=== PATIENT | male | born 1950 | race Caucasian/White ===

== ENCOUNTER → 2020-07-12 | Outpatient (CLI) | payer MEDICARE ==
--- NOTE | 2020-07-12 15:01 | US ---
EXAMINATION TYPE: US carotid duplex BILAT DATE OF EXAM: 07/12/2020 COMPARISON: NONE CLINICAL HISTORY: G45.3 AMAUNSIS FUGA. Pt states transient loss of vision with left eye EXAM MEASUREMENTS: RIGHT: Peak Systolic Velocity (PSV) cm/sec ----- Right CCA: 98.5 ----- Right ICA: 87.7 ----- Right ECA: 106 ICA/CCA ratio: 0.9 RIGHT: End Diastole cm/sec ----- Right CCA: 16.3 ----- Right ICA: 24.5 ----- Right ECA: 11.6 LEFT: Peak Systolic Velocity (PSV) cm/sec ----- Left CCA: 85.8 ----- Left ICA: 98.4 ----- Left ECA: 109 ICA/CCA ratio: 0.9 LEFT: End Diastole cm/sec ----- Left CCA: 17.4 ----- Left ICA: 24.6 ----- Left ECA: 15.0 VERTEBRALS (direction of flow): Right Vertebral: Antegrade Left Vertebral: Antegrade Rhythm: Normal No significant stenosis seen IMPRESSION: 1. No significant hemodynamic stenosis as visualized. Criteria for Assigning % of Stenosis / Diameter reduction (Estimation based on the indirect measurements of the internal carotid artery velocities (ICA PSV). 1. Normal (no stenosis)=ICA PSV < 125 cm/s: ratio < 2.0: ICA EDV<40 cm/s. 2. Less than 50% stenosis=ICA PSV < 125 cm/s: ratio < 2.0: ICA EDV<40 cm/s. 3. 50 to 69% stenosis=ICA PSV of 125 to 230 cm/s: ration 2.0 ? 4.0: ICA EDV 40-100 cm/s. 4. Greater than 70% stenosis to near occlusion= ICA PSV > 230 cm/s: ratio > 4.0: ICA EDV > 100 cm/s. 5. Near occlusion= ICA PSV velocities may be low or undetectable: variable ratio and ICA EDV. 6. Total occlusion=unable to detect flow.
== END | disposition home or self-care (01) ==
LOC: RADUSWWP 14:26
PROVIDERS: ATTEND Ophthalmology
DX: G45.3 Amaurosis fugax (principal)
CPT/HCPCS: 93880

== ENCOUNTER → 2020-08-06 | Outpatient (CLI) | payer MEDICARE ==
[2020-08-06 15:23] LABS: African American GFR (CKD) >90 (>60 ml/min/1.73 sqM); Blood Urea Nitrogen 25 mg/dL (9-20); Non-African American GFR(CKD) 87 (>60 ml/min/1.73 sqM)
--- NOTE | 2020-08-06 15:53 | CT ---
EXAMINATION TYPE: CT brain wo/w con DATE OF EXAM: 08/06/2020 COMPARISON: None HISTORY: Syncope. CT DLP: 2122.[address] of the brain was performed. The ventricles, basal cisterns and sulci overlying the cerebral convexities demonstrate mild enlargem ent. There is no evidence for intracranial hemorrhage or sulcal effacement. There is decreased attenuation about the periventricular white matter and deep white matter of both c erebral hemispheres, compatible with chronic small vessel ischemia. Differential diagnosis does inclu de demyelination. No mass effects are seen.No midline shift. Osseous calvarium is intact. If symptoms persist consider MRI. IMPRESSION: 1. Age related atrophic and chronic small vessel ischemic change without acute intracranial process s een at this time.
== END | disposition home or self-care (01) ==
LOC: RADCTMAIN 14:49
PROVIDERS: ATTEND Family Medicine
DX: I67.82 Cerebral ischemia (principal)
CPT/HCPCS: 82565; 84520; 70470; 36415; Q9967

== ENCOUNTER → 2022-03-07 | Outpatient (CLI) | payer MEDICARE ==
--- NOTE | 2022-03-07 12:04 | XR ---
EXAMINATION TYPE: XR knee complete bilateral DATE OF EXAM: 03/07/2022 11:38 AM INDICATION: Patient age:Male; 71 years old; Reason for study: R KNEE DERANGEMENT L KNEE AO/DJD; COMPARISON: None. TECHNIQUE: The Bilateral knee(s) was examined in 3 projections. Frontal, lateral and oblique. FINDINGS: No evidence of any acute osseous pathology, soft tissue swelling, or joint effusion is no kathryn. Bilateral osteophyte formation and tibial plateau and patella is as well as the condyles. Right fabel la noted. There is atherosclerosis of the arterial vasculature. There is joint space narrowing most p ronounced in the medial joint spaces bilaterally. IMPRESSION: 1. No acute osseous pathology. 2. Moderate tricompartmental osteoarthritic changes.
== END | disposition home or self-care (01) ==
LOC: RADXRMAIN 11:12
PROVIDERS: ATTEND Family Medicine
DX: M17.12 Unilateral primary osteoarthritis, left knee (principal)

== ENCOUNTER → 2023-05-12 | Outpatient (CLI) | payer MEDICARE ==
--- NOTE | 2023-05-12 10:20 | XR ---
EXAMINATION TYPE: XR chest 2V DATE OF EXAM: 05/12/2023 COMPARISON: 03/28/2014 INDICATION: Short of breath TECHNIQUE: Frontal and lateral views of the chest are obtained. FINDINGS: The heart size is normal. The pulmonary vasculature is normal. The lungs are clear. IMPRESSION: 1. No acute pulmonary process.
== END | disposition home or self-care (01) ==
LOC: RADXRMAIN 09:52
PROVIDERS: ATTEND Family Medicine
DX: R06.02 Shortness of breath (principal)
CPT/HCPCS: 71046

== ENCOUNTER 2023-08-27 16:32 | Inpatient (IN) | payer MEDICARE, OTHER ==
--- NOTE | 2023-08-27 17:18 | ED ---
SOB HPI - General Source: patient, RN notes reviewed Mode of arrival: ambulatory Limitations: no limitations <Mamta Reddy - Last Filed: 08/27/23 17:16> - General Source: patient, RN notes reviewed, old records reviewed <Saul Hugo - Last Filed: 08/27/23 20:49> - General Chief Complaint: Shortness of Breath Stated Complaint: KAYDEN/SOB Time Seen by Provider: 08/27/23 16:50 - History of Present Illness Initial Comments: Kat notedesirees is a 73-year-old male presents emergency department chief complaint of dyspnea. Patient is also endorsing symptoms of orthopnea over the past few weeks to month. Patient states that he has been experiencing dyspnea since the fall due to hydrogen sulfide poisoning at a landfill. Patient has history of COPD states he has history of asthma as a child. Denies fevers, history of DVT or PE, lower extremity swelling, and is not on any blood thinners. (Mamta Reddy) Patient is a 73-year-old male who presents emergency department complaining of dyspnea. States for the last 2 weeks he has been having worsening shortness of breath, orthopnea, difficulty sleeping at night. Also endorsing worsening lower extremity edema. No cough. No chest pain. No abdominal pain, nausea, vomi ting. Presents emergency department for further evaluation at this time. Denies any follow-up with cardiology. Has a history of hypertension. Presents for further evaluation at this time. Denies any chest pain. (Saul Hugo) - Related Data Home Medications Medication Instructions Recorded Confirmed Cholecalciferol [Vitamin D3 (25 25 mcg PO DAILY 08/27/23 08/27/23 Mcg = 1000 Iu)] Simvastatin [Zocor] 20 mg PO DAILY 08/27/23 08/27/23 Vit C/E/Zn/Coppr/Lutein/Zeaxan 1 cap PO DAILY 08/27/23 08/27/23 [Preservision Areds 2 Softgel] amLODIPine [Norvasc] 10 mg PO DAILY 08/27/23 08/27/23 lisinopriL [Zestril] 20 mg PO DAILY 08/27/23 08/27/23 Allergies Allergy/AdvReac Type Severity Reaction Status Date / Time No Known Allergies Allergy Verified 08/27/23 19:53 Review of Systems ROS Other: All systems not noted in ROS Statement are negative. <Mamta Reddy - Last Filed: 08/27/23 17:16> ROS Other: All systems not noted in ROS Statement are negative. <Saul Hugo - Last Filed: 08/27/23 20:49> ROS Statement: Those systems with pertinent positive or pertinent negative responses have been documented in the HPI. Review of Systems: CONST: Denies fever EYES: Denies blurry vision ENT: Denies nasal congestion C/V: Denies Chest pain RESP: Endorses shortness of breath GI: Denies abdominal pain : Denies dysuria SKIN: Denies rash. MSK: Denies joint pain. NEURO: Denies headache (Saul Hugo) Past Medical History Past Medical History: Hyperlipidemia, Hypertension History of Any Multi-Drug Resistant Organisms: None Reported Additional Past Surgical History / Comment(s): rt kidney removal Past Psychological History: No Psychological Hx Reported Smoking Status: Never smoker Past Alcohol Use History: Occasional Past Drug Use History: None Reported <Mamta Reddy - Last Filed: 08/27/23 17:16> General Exam Limitations: no limitations <Mamta Reddy - Last Filed: 08/27/23 17:16> <Saul Hugo - Last Filed: 08/27/23 20:49> - General Exam Comments Initial Comments: Visual Physical Exam Vital signs reviewed General: Well-appearing, nontoxic, no acute distress. Head: Normocephalic, atraumatic Eyes: PERRLA, EOMI ENT: Airway patent Chest: Nonlabored breathing Skin: No visual rash, normal skin tone Neuro: Alert and oriented 3 Musculoskeletal: No gross abnormalities (Mamta Reddy) General: Appears in no acute distress. HEAD: Normal with no signs of head trauma. EYES: PERRLA, EOMI, conjunctiva normal, no discharge. ENT: Hearing grossly intact, normal oropharynx. RESPIRATORY: Clear breath sounds bilaterally. No wheezes, rales, or rhonchi. No hypoxia. C/V: Regular rate and rhythm. S1 and S2 auscultated, metrical lower extremity pitting edema, peripheral pulses 2+ and intact throughout ABD: Abd is soft, nontender, nondistended EXT: Normal range of motion, no obvious deformity SKIN: No rashes or lesions observed on exposed skin. NEURO: Alert and oriented x 4. (Saul Hugo) Course Vital Signs 08/27/23 08/27/23 08/27/23 16:42 18:34 19:56 Temperature 97.9 F Pulse Rate 75 87 80 Respiratory 16 18 18 Rate Blood Pressure 179/117 181/120 169/120 O2 Sat by Pulse 99 98 97 Oximetry Medical Decision Making <Mamta Reddy - Last Filed: 08/27/23 17:16> - Lab Data Result diagrams: 08/27/23 18:14 08/27/23 19:20 - EKG Data -: EKG Interpreted by Me <BethelSaul - Last Filed: 08/27/23 20:49> - Medical Decision Making I completed the quick note portion of this chart signed Mamta Reddy PA-C (Mamta Reddy) Was pt. sent in by a medical professional or institution ([facility] Ann, [employer], urgent care, hospital, or [facility]...) When possible be specific @ -No Did you speak to anyone other than the patient for history (EMS, parent, family, police, friend...)? What history was obtained from this source @ -No Did you review nursing and triage notes (agree or disagree)? Why? @ -I reviewed and agree with nursing and triage notes Were old charts reviewed (outside hosp., previous admission, EMS record, old EKG, old radiological studies, urgent care reports/EKG's, [facility] records)? Report findings @ -Old charts reviewed Differential Diagnosis (chest pain, altered mental status, abdominal pain women, abdominal pain men, vaginal bleeding, weakness, fever, dyspnea, syncope, headache, dizziness, GI bleed, back pain, seizure, CVA, palpatations, mental health, musculoskeletal)? @ -Differential Dyspnea: Coronary syndrome, arrhythmia, tamponade, asthma, COPD, pulmonary embolism, pneumonia, pneumothorax, pulmonary effusion, anaphylaxis, diabetic ketoacidosis, flailed chest, pulmonary contusion, diaphragmatic rupture, anemia, neuromuscular, this is not meant to be an all-inclusive list. EKG interpreted by me (3pts min.). @ -As above X-rays interpreted by me (1pt min.). @ -Chest x-ray shows findings consistent with CHF CT interpreted by me (1pt min.). @ -None done U/S interpreted by me (1pt. min.). @ -None done What testing was considered but not performed or refused? (CT, X-rays, U/S, labs)? Why? @ -None What meds were considered but not given or refused? Why? @ -None Did you discuss the management of the patient with other professionals (professionals i.e. , PA, [employer], lab, RT, psych nurse, social service agency director, voice coach, teacher, special assets officer, showcase maker)? Give summary @ -Discussed with admitting provider, PORSHA Lopes of [facility] who accepted the admission. Was smoking cessation discussed for >3mins.? @ -No Was critical care preformed (if so, how long)? @ -Yes, 35 minutes Were there social determinants of health that impacted care today? How? (Homelessness, low income, unemployed, alcoholism, drug addiction, transporta tion, low edu. Level, literacy, decrease access to med. care, senior care, rehab)? @ -No Was there de-escalation of care discussed even if they declined (Discuss DNR or withdrawal of care, Hospice)? DNR status @ -No What co-morbidities impacted this encounter? (DM, HTN, Smoking, COPD, CAD, Cancer, CVA, ARF, Chemo, Hep., AIDS, mental health diagnosis, sleep apnea, morbid obesity)? @ -Hypertension Was patient admitted / discharged? Hospital course, mention meds given and route, prescriptions, significant lab abnormalities, going to OR and other pertinent info. @ -Based on the patient's presentation and physical exam, presents with dyspnea. Suspect CHF exacerbation for the patient. Patient originally worked up as a quick note. We will obtain cardiopulmonary workup. Patient in agreement this plan. Vital signs currently within acceptable limits. EKG shows no signs of acute ischemia. Laboratory studies remarkable for elevated troponin of 0.823 as well as elevated BNP of 13,000. Chest x-ray does show findings consistent with CHF. I updated the patient. He is chest pain-free. We discussed his workup. Patient be started on a heparin drip for NSTEMI as well as IV Lasix for CHF. Patient was in agreement this plan. Echo ordered. Cardiology consulted. I spoke with the admitting team, PORSHA Lopes of [facility] who accepted the admission. Undiagnosed new problem with uncertain prognosis? @ -No Drug Therapy requiring intensive monitoring for toxicity (Heparin, Nitro, Insulin, Cardizem)? @ -Heparin Were any procedures done? @ -No Diagnosis/symptom? @ -NSTEMI, CHF Acute, or Chronic, or Acute on Chronic? @ -Acute Uncomplicated (without systemic symptoms) or Complicated (systemic symptoms)? @ -Complicated Side effects of treatment? @ -No Exacerbation, Progression, or Severe Exacerbation? @ -No Poses a threat to life or bodily function? How? (Chest pain, USA, MD, pneumonia, PE, COPD, DKA, ARF, appy, cholecystitis, CVA, Diverticulitis, Homicidal, Suicidal, threat to staff... and all critical care pts) @ -Yes (Saul Hugo) - Lab Data Lab Results 08/27/23 08/27/23 08/27/23 Range/Units 18:14 18:57 19:20 WBC 7.9 (3.8-10.6) k/uL RBC 5.50 (4.30-5.90) m/uL Hgb 16.5 (13.0-17.5) gm/dL Hct 51.9 (39.0-53.0) % MCV 94.4 (80.0-100.0) fL MCH 30.0 (25.0-35.0) pg MCHC 31.8 (31.0-37.0) g/dL RDW 13.1 (11.5-15.5) % Plt Count 178 (150-450) k/uL MPV 8.0 Neutrophils % 67 % Lymphocytes % 21 % Monocytes % 6 % Eosinophils % 4 % Basophils % 1 % Neutrophils # 5.3 (1.3-7.7) k/uL Lymphocytes # 1.7 (1.0-4.8) k/uL Monocytes # 0.5 (0-1.0) k/uL Eosinophils # 0.3 (0-0.7) k/uL Basophils # 0.1 (0-0.2) k/uL Sodium 138 (137-145) mmol/L Potassium 4.6 (3.5-5.1) mmol/L Chloride 108 H (98-107) mmol/L Carbon Dioxide 22 (22-30) mmol/L Anion Gap 8 mmol/L BUN 20 (9-20) mg/dL Creatinine 1.12 (0.66-1.25) mg/dL Est GFR (CKD-EPI)AfAm 76 (>60 ml/min/1.73 sqM) Est GFR (CKD-EPI)NonAf 66 (>60 ml/min/1.73 sqM) Glucose 93 (74-99) mg/dL Calcium 10.0 (8.4-10.2) mg/dL Magnesium 2.2 (1.6-2.3) mg/dL Total Bilirubin 2.0 H (0.2-1.3) mg/dL AST 38 (17-59) U/L ALT 38 (4-49) U/L Alkaline Phosphatase 62 (38-126) U/L Troponin I (0.000-0.034) ng/mL NT-Pro-B Natriuret Pep 83656 pg/mL Total Protein 6.8 (6.3-8.2) g/dL Albumin 4.2 (3.5-5.0) g/dL Influenza Type A (PCR) Not Detected (Not Detectd) Influenza Type B (PCR) Not Detected (Not Detectd) RSV (PCR) Not Detected (Not Detectd) SARS-CoV-2 (PCR) Not Detected (Not Detectd) 08/27/23 Range/Units 19:20 WBC (3.8-10.6) k/uL RBC (4.30-5.90) m/uL Hgb (13.0-17.5) gm/dL Hct (39.0-53.0) % MCV (80.0-100.0) fL MCH (25.0-35.0) pg MCHC (31.0-37.0) g/dL RDW (11.5-15.5) % Plt Count (150-450) k/uL MPV Neutrophils % % Lymphocytes % % Monocytes % % Eosinophils % % Basophils % % Neutrophils # (1.3-7.7) k/uL Lymphocytes # (1.0-4.8) k/uL Monocytes # (0-1.0) k/uL Eosinophils # (0-0.7) k/uL Basophils # (0-0.2) k/uL Sodium (137-145) mmol/L Potassium (3.5-5.1) mmol/L Chloride (98-107) mmol/L Carbon Dioxide (22-30) mmol/L Anion Gap mmol/L BUN (9-20) mg/dL Creatinine (0.66-1.25) mg/dL Est GFR (CKD-EPI)AfAm (>60 ml/min/1.73 sqM) Est GFR (CKD-EPI)NonAf (>60 ml/min/1.73 sqM) Glucose (74-99) mg/dL Calcium (8.4-10.2) mg/dL Magnesium (1.6-2.3) mg/dL Total Bilirubin (0.2-1.3) mg/dL AST (17-59) U/L ALT (4-49) U/L Alkaline Phosphatase (38-126) U/L Troponin I 0.823 H* (0.000-0.034) ng/mL NT-Pro-B Natriuret Pep pg/mL Total Protein (6.3-8.2) g/dL Albumin (3.5-5.0) g/dL Influenza Type A (PCR) (Not Detectd) Influenza Type B (PCR) (Not Detectd) RSV (PCR) (Not Detectd) SARS-CoV-2 (PCR) (Not Detectd) - EKG Data EKG Comments: 12-lead Electrocardiogram Interpretation Note EKG was reviewed and interpreted by myself. 12-lead ECG performed at 1819 is interpreted by me as revealing normal sinus rhythm at a rate of 86 beats per minute. [place] is normal. CA interval is 147 ms, QRS duration is 88 ms, QTc is 419 ms.. There were no ST or T wave abnormalities to suggest myocardial ischemia or injury. R wave progression across the precordium was satisfactory. By my interpretation this EKG is non-diagnostic for acute ischemia. (Saul Hugo) Critical Care Time Critical Care Time: Yes Total Critical Care Time: 35 <Saul Hugo - Last Filed: 08/27/23 20:49> Disposition <Mamta Reddy - Last Filed: 08/27/23 17:16> Time of Disposition: 20:28 <Saul Hugo - Last Filed: 08/27/23 20:49> Clinical Impression: Congestive heart failure, NSTEMI (non-ST elevated myocardial infarction) Disposition: ADMITTED IP TO THIS HOSP Condition: Serious Referrals: Andrew Wasserman DO [Primary Care Provider] - 1-2 days
--- NOTE | 2023-08-27 17:34 | XR ---
EXAMINATION TYPE: XR chest 2V DATE OF EXAM: 08/27/2023 COMPARISON: 05/12/2023 HISTORY: Shortness of breath TECHNIQUE: Frontal and lateral views of the chest are obtained. FINDINGS: There is moderate cardiomegaly and small bilateral pleural effusions. The pulmonary vasculature is no t congested. There is no interstitial or airspace opacities suggest pulmonary edema. There are multiple healed left rib fractures otherwise the osseous structures are intact IMPRESSION: Moderate cardiomegaly with small bilateral pleural effusions suggesting mild CHF.
[2023-08-27 18:44] LABS: Basophils # (A) 0.1 k/uL (0-0.2); Basophils % (A) 1 %; Eosinophils # (A) 0.3 k/uL (0-0.7); Eosinophils % (A) 4 %; HCT 51.9 % (39.0-53.0); HGB 16.5 gm/dL (13.0-17.5); Lymphocytes # (A) 1.7 k/uL (1.0-4.8); Lymphocytes % (A) 21 %; MCHC 31.8 g/dL (31.0-37.0); MCV 94.4 fL (80.0-100.0); Monocytes # (A) 0.5 k/uL (0-1.0); Monocytes % (A) 6 %; Neutrophils # (A) 5.3 k/uL (1.3-7.7); Neutrophils % (A) 67 %; Platelet Count 178 k/uL (150-450); RDW 13.1 % (11.5-15.5); WBC 7.9 k/uL (3.8-10.6)
[2023-08-27 19:45] LABS: ALT 38 U/L (4-49); AST 38 U/L (17-59); African American GFR (CKD) 76 (>60 ml/min/1.73 sqM); Albumin 4.2 g/dL (3.5-5.0); Alkaline Phosphatase 62 U/L (38-126); Anion Gap 8 mmol/L; Blood Urea Nitrogen 20 mg/dL (9-20); Carbon Dioxide 22 mmol/L (22-30); Chloride 108 mmol/L (98-107); Glucose 93 mg/dL (74-99); Magnesium 2.2 mg/dL (1.6-2.3); Non-African American GFR(CKD) 66 (>60 ml/min/1.73 sqM); Potassium 4.6 mmol/L (3.5-5.1); Sodium 138 mmol/L (137-145); Total Protein 6.8 g/dL (6.3-8.2)
[2023-08-27 19:53] LABS: NT-Pro-B-Type Natriuretic Pept 13400 pg/mL
[2023-08-27] MEDS: ASPIRIN 81 MG PO STA (20:24)
[2023-08-27] MEDS: FUROSEMIDE 10 MG/ML 4 ML VIAL IV STA (20:25)
[2023-08-27] MEDS: HEPARIN SODIUM 1,000 UN/ML (10ML VL) IV ONE (20:28)
[2023-08-27] MEDS: HEPARIN SOD,PORK IN 0.45% NACL 25,000 UNIT in 0.45% NACL 1 250ML.BAG IV SCH (20:30)
[2023-08-27] MEDS ORDERED: ONDANSETRON 4 MG/2 ML VIAL IVP PRN (20:31)
[2023-08-27] MEDS ORDERED: NALOXONE 0.4 MG/ML 1 ML VIAL IV PRN (20:31)
[2023-08-28 04:12] LABS: Basophils # (A) 0.1 k/uL (0-0.2); Basophils % (A) 1 %; Eosinophils # (A) 0.3 k/uL (0-0.7); Eosinophils % (A) 5 %; HCT 47.1 % (39.0-53.0); HGB 15.1 gm/dL (13.0-17.5); Lymphocytes % (A) 28 %; MCH 30.3 pg (25.0-35.0); MCV 94.6 fL (80.0-100.0); Monocytes # (A) 0.6 k/uL (0-1.0); Monocytes % (A) 9 %; Neutrophils # (A) 3.9 k/uL (1.3-7.7); Neutrophils % (A) 56 %; Platelet Count 175 k/uL (150-450); RBC 4.98 m/uL (4.30-5.90); RDW 13.1 % (11.5-15.5)
[2023-08-28 04:24] LABS: ALT 34 U/L (4-49); AST 33 U/L (17-59); African American GFR (CKD) 73 (>60 ml/min/1.73 sqM); Albumin 3.7 g/dL (3.5-5.0); Alkaline Phosphatase 57 U/L (38-126); Anion Gap 5 mmol/L; Blood Urea Nitrogen 23 mg/dL (9-20); Calcium 9.5 mg/dL (8.4-10.2); Carbon Dioxide 26 mmol/L (22-30); Chloride 107 mmol/L (98-107); Glucose 88 mg/dL (74-99); Non-African American GFR(CKD) 63 (>60 ml/min/1.73 sqM); Potassium 3.8 mmol/L (3.5-5.1); Sodium 138 mmol/L (137-145); Total Bilirubin 1.6 mg/dL (0.2-1.3); Total Protein 6.2 g/dL (6.3-8.2)
[2023-08-28 04:25] LABS: Partial Thromboplastin Time 33.9 sec (22.0-30.0); Prothrombin Time 11.2 sec (10.0-12.5)
[2023-08-28] MEDS: HEPARIN SODIUM 1,000 UN/ML (10ML VL) IV PRN (05:00)
[2023-08-28] MEDS ORDERED: ALPRAZolam 0.25 MG TAB PO PRN (09:00)
[2023-08-28] MEDS ORDERED: ALPRAZolam 0.5 MG TAB PO PRN (09:00)
[2023-08-28] MEDS ORDERED: NITROGLYCERIN SL TABS 0.4 MG TAB SUBLINGUAL PRN (09:00)
[2023-08-28] MEDS: lisinopriL 20 MG TAB PO SCH (09:16)
[2023-08-28] MEDS: ATORVASTATIN 10 MG TAB PO SCH (09:16)
[2023-08-28] MEDS: amLODIPine 10 MG TAB PO SCH (09:16)
[2023-08-28] MEDS: FUROSEMIDE 10 MG/ML 4 ML VIAL IV SCH (09:16)
[2023-08-28] MEDS: ASPIRIN 325 MG TAB PO STA (09:16)
[2023-08-28] MEDS: ATORVASTATIN 80 MG TAB PO STA (09:16)
[2023-08-28] MEDS ORDERED: fentaNYL (PF) 50 MCG/ML 2 ML AMP ONE (10:13)
[2023-08-28] MEDS ORDERED: HEPARIN SODIUM 1,000 UN/ML (10ML VL) ONE (10:13)
[2023-08-28] MEDS: SODIUM CHLORIDE 0.9% 1,000 ML IV ONE (10:20)
[2023-08-28] MEDS: fentaNYL (PF) 50 MCG/ML 2 ML AMP IVP ONE (10:53)
[2023-08-28] MEDS: MIDAZOLAM 2 MG/2 ML VIAL IVP ONE (10:53)
[2023-08-28] MEDS: LIDOCAINE 1% INJ 10MG/ML (20 ML MDV) SQ ONE (10:55)
[2023-08-28] MEDS: VERAPAMIL SYRINGE (5 MG/10 ML) INTRAARTER ONE (10:57)
[2023-08-28] MEDS: HEPARIN SODIUM 1,000 UN/ML (10ML VL) IV ONE (11:02)
[2023-08-28] MEDS: IOPAMIDOL-370 100ML BTL INJ ONE (11:13)
[2023-08-28] MEDS ORDERED: RX INFO: IV CONTRAST WAS GIVEN 1 EACH MISC MISCELLANE PRN (11:23)
--- NOTE | 2023-08-28 11:34 | CA ---
Transthoracic Echo Report Name: Paul Villalobos Age: 73 Gender: M : 1950 Exam Date: 08/28/2023 08:47 Exam Location: [place] [facility] Ht (in): 68 Wt (lb): 190 Ordering Physician: Saul Hugo MD Attending/Referring Phys: [employer] Operator Jasmyne Engle RDCS Procedure CPT: Indications: New onset CHF Cardiac Hx: Technical Quality: Poor Contrast 1: Total Dose (mL): Contrast 2: Total Dose (mL): MEASUREMENTS (Male / Female) Normal Values 2D ECHO LV Diastolic Diameter PLAX 6.2 cm 4.2 - 5.9 / 3.9 - 5.3 cm LV Systolic Diameter PLAX 5.4 cm IVS Diastolic Thickness 1.4 cm 0.6 - 1.0 / 0.6 - 0.9 cm LVPW Diastolic Thickness 1.3 cm 0.6 - 1.0 / 0.6 - 0.9 cm LV Relative Wall Thickness 0.4 RV Internal Dim ED PLAX 3.9 cm LA Systolic Diameter LX 4.7 cm 3.0 - 4.0 / 2.7 - 3.8 cm LV Diastolic Volume MOD 4C 154.3 cm??? LV Systolic Volume MOD 4C 105.8 cm??? LV Ejection Fraction MOD 4C 31.4 % LV Cardiac Index MOD 4C 1981.4 cm???/min???m??? LV Diastolic Length 4C 10.4 cm LV Systolic Length 4C 9.7 cm LV Diastolic Volume MOD 2C 138.6 cm??? LV Systolic Volume MOD 2C 108.4 cm??? LV Ejection Fraction MOD 2C 21.8 % LV Cardiac Index MOD 2C 1238.5 cm???/min???m??? LV Diastolic Length 2C 9.2 cm LV Systolic Length 2C 8.4 cm LA Volume 99.6 cm??? 18 - 58 / 22 - 52 cm??? LA Volume Index 48.5 cm???/m??? 16 - 28 cm???/m??? M-MODE Aortic Root Diameter MM 3.8 cm MV E Point Septal Separation 1.7 cm AV Cusp Separation MM 2.2 cm DOPPLER AV Peak Velocity 139.4 cm/s AV Peak Gradient 7.8 mmHg AI Peak Velocity 385.6 cm/s AI Peak Gradient 59.5 mmHg AI Pressure Half Time 1722.8 ms MV Area PHT 5.2 cm??? MR Peak Velocity 528.0 cm/s MR Peak Gradient 111.5 mmHg Mitral E Point Velocity 104.1 cm/s Mitral A Point Velocity 52.4 cm/s Mitral E to A Ratio 2.0 MV Deceleration Time 147.0 ms TR Peak Velocity 397.7 cm/s TR Peak Gradient 63.3 mmHg Right Ventricular Systolic Press 68.3 mmHg FINDINGS Left Ventricle Left ventricular ejection fraction is estimated at 25-30 %. Mildly increased septal wall thickness. Mildly increased left ventricular diastolic diameter. Global left ventricular hypokinesis. Apical akinesis. Thrombus in Dolph Right Ventricle Moderate right ventricular dilatation. Severe pulmonary hypertension. Right ventricular systolic pressure estimated at 68 mm hg. Right Atrium Normal right atrial size. Left Atrium Mildly increased left atrial diameter. Severely increased left atrial volume. Mildly increased left atrial area. Mitral Valve Structurally normal mitral valve. Mitral annular calcification. Moderate-to- severe mitral regurgitation. Aortic Valve Trileaflet aortic valve. Mild aortic regurgitation. Tricuspid Valve Structurally normal tricuspid valve. Moderate tricuspid regurgitation. Pulmonic Valve Structurally normal pulmonic valve. Trace to mild pulmonic regurgitation. Pericardium Normal pericardium. Aorta Mild aortic dilatation at the level of the sinuses of valsalva 38 mm CONCLUSIONS Severe LV dysfunction with a large anteroapical and septal akinesis with an LV thrombus which is fairly large Previewed by: Dr. Vitaliy Mitchell MD (Electronically Signed) Final Date: 28 August 2023 11:34
--- NOTE | 2023-08-28 12:40 | CONS ---
CONSULTATION CHIEF COMPLAINT: Shortness of breath. HISTORY OF PRESENT ILLNESS: Paul is a 73-year-old gentleman with history of hypertension, dyslipidemia, who presented to hospital with symptoms suggestive of new-onset congestive heart failure. He states that over the last 2 weeks he has been developing progressively worsening shortness of breath, primarily at nighttime. The patient has history of hypertension, dyslipidemia, but there is no prior history of coronary artery disease or congestive heart failure. He had bilateral lower extremity edema also. Chest x-ray revealed evidence of pulmonary congestion and his BNP is elevated, there is moderate cardiomegaly. IV Lasix had improved his symptoms. At the time of my evaluation, he is free of chest pain, difficulty in breathing. EKG shows sinus rhythm, evidence of prior anteroseptal myocardial infarction, PVCs, and nonspecific ST-T wave changes. Three sets of troponins are elevated at 0.8, 0.8, and 0.8 with a BNP of 15,400. Creatinine is normal, hemoglobin is normal. The patient's clinical presentation is consistent with acute onset congestive heart failure. I am going to obtain a 2D echo to evaluate his LV function and also a [id number] elevation AK. I will consider performing cardiac catheterization on him for further evaluation. I talked to him at length about these. He understands and in agreement with the plans and I am waiting on the echocardiogram at this time. PAST MEDICAL HISTORY: Significant for hypertension, dyslipidemia. MEDICATIONS: 1. Norvasc 10 daily. 2. Zestril 20 daily. 3. Zocor 20 daily. ALLERGIES: No known drug allergies. FAMILY HISTORY: Negative for premature coronary artery disease. SOCIAL HISTORY: Negative for smoking, EtOH abuse, or drug abuse. REVIEW OF SYSTEMS: A review of systems has been performed, pertinents are as documented. PHYSICAL EXAMINATION: VITAL SIGNS: Heart rate is 77 beats, blood pressure 138/92, respiratory rate is 18, and O2 saturation is 95% on room air. NECK: There is no jugular venous distention. Carotid upstroke is normal. There is no bruit. CHEST: Reveals good air entry bilaterally. HEART: Reveals first and second heart sounds. No gallop, no murmur. ABDOMEN: Soft, nontender. EXTREMITIES: Did not reveal any edema. Peripheral pulses are felt. LABS: As described above. DIAGNOSTIC STUDIES: EKG is as described above. Chest x-ray is as described above. ASSESSMENT AND PLAN: 1. Acute [id number] elevation AK. 2. Acute-onset congestive heart failure of undetermined LV function. PLAN: I will continue with Lasix, aspirin, Zestril, Lipitor, Norvasc, and add a beta jennifer. Obtain a 2D echo and perform cardiac catheterization on him. ANASTACIO / EDWARDN: [id number] /
--- NOTE | 2023-08-28 12:57 | CC ---
CARDIAC CATHETERIZATION REPORT INDICATIONS: Acute mbp-AF-ustuzct elevation CA. PROCEDURE NOTE: After obtaining informed consent, left heart catheterization and coronary angiogram were performed via the right radial artery using standard Marli catheters. The patient tolerated the procedure well without any obvious immediate complications. The patient received moderate conscious sedation. Total sedation time was 20 minutes. Right radial artery access was obtained using Seldinger technique, 6-Gambian sheath was placed. Catheters and wires were floated into the ascending aorta under fluoroscopic guidance. The patient received verapamil and heparin per protocol. FINDINGS: 1. Hemodynamics: Left ventricular end-diastolic pressure is 18 mm. There is no significant gradient across the aortic valve. 2. Left Ventriculogram: Left ventriculogram is not performed. 3. Angiographic Data: a.Right Coronary Artery: Right coronary artery is a large dominant vessel and is free of significant disease. Left main coronary artery appears calcified, divides into left anterior descending coronary artery and circumflex coronary artery. LAD shows a focal 70% to 80% stenosis proximally and rest of the LAD appears diffusely diseased. Circumflex coronary artery is a nondominant vessel that shows proximal 70% stenosis and very distally there is a focal 95% stenosis noted. CONCLUSION: Severe two-vessel coronary artery disease as described above. PLAN: I am going to review the echo findings and consult a cardiothoracic surgeon to seek opinion from them. The patient is a candidate for surgical revascularization. Dr. Rodriguez, the on-call loss prevention guard already reviewed the angiographic data and he felt that if he is not a surgical candidate, we will revascularize the circ and treat the LAD medically. If the LAD distribution is viable, will consider catheter based revascularization of the LAD also. I discussed these issues at length with the patient. He understands and in agreement with the plan. MMODL / IJN: [id number] /
--- NOTE | 2023-08-28 13:27 | P.HPIM ---
History of Present Illness 71-year-old male came in with shortness of breath progressively worsening along with orthopnea proximal nocturnal dyspnea patient therapy given severe congestive heart failure with elevated BNP and pulmonary edema on x-ray patient was started on IV Lasix patient has been evaluated troponins but stable at 0.8 and BNP of 2400 patient appears to have some ST-T wave changes on EKG patient was then taken to [facility] found to have LAD and circumflex severe stenosis. Patient will undergo stenting of these blood vessels REVIEW OF SYSTEMS: CONSTITUTIONAL: No fever, no malaise, no fatigue. HEENT: No recent visual problems or hearing problems. Denied any sore throat. CARDIOVASCULAR: No chest pain, no palpitations, no syncope. PULMONARY: , no hemoptysis. GASTROINTESTINAL: No diarrhea, no nausea, no vomiting, no abdominal pain. NEUROLOGICAL: No headaches, no weakness, no numbness. HEMATOLOGICAL: Denies any bleeding or petechiae. GENITOURINARY: Denies any burning micturition, frequency, or urgency. MUSCULOSKELETAL/RHEUMATOLOGICAL: Denies any joint pain, swelling, or any muscle pain. ENDOCRINE: Denies any polyuria or polydipsia. The rest of the 14-point review of systems is negative. PHYSICAL EXAMINATION: GENERAL: The patient is alert and oriented x3, not in any acute distress. Well developed, well nourished. HEENT: Pupils are round and equally reacting to light. EOMI. No scleral icterus. No conjunctival pallor. Normocephalic, atraumatic. No pharyngeal erythema. No thyromegaly. CARDIOVASCULAR: S1 and S2 present. No murmurs, rubs, or gallops. PULMONARY: Chest is clear to auscultation, no wheezing or crackles. ABDOMEN: Soft, nontender, nondistended, normoactive bowel sounds. No palpable organomegaly. MUSCULOSKELETAL: No joint swelling or deformity. EXTREMITIES: No cyanosis, clubbing, or pedal edema. NEUROLOGICAL: Gross neurological examination did not reveal any focal deficits. SKIN: No rashes. Assessment and plan Congestive heart failure patient appears to have acute systolic dysfunction with pulm edema and acute exacerbation patient will be started on IV Lasix. -Ischemic cardiomyopathy -Acute non-ST elevation [place] for which patient undergo cardiac catheterization -Hypertension DVT prophylaxis: Patient is presently on IV heparin Past Medical History Past Medical History: Hyperlipidemia, Hypertension History of Any Multi-Drug Resistant Organisms: None Reported Additional Past Surgical History / Comment(s): rt kidney removal Past Psychological History: No Psychological Hx Reported Smoking Status: Never smoker Past Alcohol Use History: Occasional Past Drug Use History: None Reported Medications and Allergies Home Medications Medication Instructions Recorded Confirmed Type Cholecalciferol [Vitamin D3 (25 25 mcg PO DAILY 08/27/23 08/27/23 History Mcg = 1000 Iu)] Simvastatin [Zocor] 20 mg PO DAILY 08/27/23 08/27/23 History Vit C/E/Zn/Coppr/Lutein/Zeaxan 1 cap PO DAILY 08/27/23 08/27/23 History [Preservision Areds 2 Softgel] amLODIPine [Norvasc] 10 mg PO DAILY 08/27/23 08/27/23 History lisinopriL [Zestril] 20 mg PO DAILY 08/27/23 08/27/23 History Allergies Allergy/AdvReac Type Severity Reaction Status Date / Time No Known Allergies Allergy Verified 08/27/23 19:53 Physical Exam Vitals: Vital Signs Temp Pulse Pulse Resp BP BP Pulse Ox 08/28/23 12:47 64 16 133/81 95 08/28/23 12:18 69 16 132/83 96 08/28/23 12:03 68 16 139/61 95 08/28/23 11:48 71 16 146/86 95 08/28/23 11:33 62 16 136/65 96 08/28/23 09:10 98.2 F 80 18 146/96 98 08/28/23 08:21 77 18 138/95 95 08/28/23 06:00 97 19 139/97 96 08/28/23 05:00 61 16 141/93 97 08/28/23 04:00 61 17 128/93 96 08/28/23 03:00 60 18 140/98 97 08/28/23 02:00 67 18 132/84 97 08/28/23 01:00 70 18 144/91 95 08/28/23 00:00 86 19 157/97 97 08/27/23 23:00 84 18 156/101 96 08/27/23 22:00 68 18 156/107 98 08/27/23 21:00 95 18 171/116 97 08/27/23 19:56 80 18 169/120 97 08/27/23 18:34 87 18 181/120 98 04/25/24 16:42 97.9 F 75 16 179/117 99 Intake and Output 08/27/23 08/28/23 08/28/23 22:59 06:59 14:59 Intake Total 84.193 100 Output Total 800 Balance 84.193 -700 Intake: IV 100 Intake, IV Titration 84.193 Amount Heparin Sod,Pork in 0.45% 84.193 NaCl 25,000 unit In 0.45 % NaCl 1 250ml.bag @ 11. 63 UNITS/KG/HR 10.023 mls /hr IV .Q24H [facility] Rx#: [id number] Output: Urine 800 Other: Weight 86.183 kg Results CBC & Chem 7: 08/28/23 03:49 08/28/23 03:49 Labs: Abnormal Lab Results - Last 24 Hours (Table) 08/27/23 08/27/23 08/27/23 Range/Units 19:20 19:20 23:19 APTT (22.0-30.0) sec Chloride 108 H (98-107) mmol/L BUN (9-20) mg/dL Total Bilirubin 2.0 H (0.2-1.3) mg/dL Troponin I 0.823 H* 0.832 H* (0.000-0.034) ng/mL Total Protein (6.3-8.2) g/dL 08/28/23 08/28/23 08/28/23 Range/Units 03:49 03:49 03:49 APTT 33.9 H (22.0-30.0) sec Chloride (98-107) mmol/L BUN 23 H (9-20) mg/dL Total Bilirubin 1.6 H (0.2-1.3) mg/dL Troponin I 0.820 H* (0.000-0.034) ng/mL Total Protein 6.2 L (6.3-8.2) g/dL
--- NOTE | 2023-08-28 13:54 | P.GSCN ---
History of Present Illness Consult date: 08/28/23 Reason for Consult: Multivessel coronary artery disease, non-ST elevated myocardial infarction this admission, left ventricular ejection fraction estimated at 25 to 30%, moderate to severe mitral valve regurgitation on transthoracic 2D echocardiogram Requesting physician: Juan Manuel Alvarez History of present illness: This is a 73-year-old gentleman who follows on an outpatient basis with Dr. Andrew Wasserman for his primary care. He has a past medical history significant for hypertension, hyperlipidemia, childhood asthma, remote history of nicotine dependence quit smoking in 1975, rare EtOH use, history of syncope in August [address] of the brain showing no acute intracranial process, history of cancer of the kidney, status post right nephrectomy, arthritis of the spine and family history of early onset coronary artery disease with his dad passing away at age 45 from a myocardial infarction and 3 brothers diagnosed with coronary artery disease. He presented to the emergency department here at [facility] yesterday August 26 with complaints of progressive dyspnea and orthopnea. He states his shortness of breath is tolerable when sitting up but when laying flat he has trouble catching his breath. He denies any recent fever, chills, nausea, vomiting, chest pain/pressure, palpitations, constipation, diarrhea, headache, hemoptysis, hematemesis, presyncope or syncope. A twelve-lead EKG was completed in the emergency department which showed normal sinus rhythm with evidence of prior anterior septal myocardial infarction, and nonspecific STT wave changes. Initial laboratory results showed positive serial troponins as high as 0.832 and his proBNP was 13,400. Due to the patient's symptoms, and serial troponins he was ruled in for an acute non-ST elevated myocardial infarction and acute congestive heart failure. A transthoracic 2D echocardiogram was completed which showed his left ventricular ejection fraction to be estimated at 25 to 30%, mildly increased septal wall thickness, mildly increased left ventricular diastolic diameter, global left ventricular hypokinesis, apical kinesis and thrombus in the apex. It also demonstrated moderate to severe mitral valve regurgitation, mild aortic valve regurgitation, moderate tricuspid valve regurgitation and trace to mild pulmonic valve regurgitation. Dr. Alvarez from cardiology was consulted and the patient was recommended to undergo a cardiac catheterization which was completed today and demonstrated multivessel coronary artery disease. Due to the findings on the cardiac catheterization a consult was placed to cardiothoracic surgery for further evaluation and treatment recommendations including myocardial vasculari zation surgery. Review of Systems A 14 point review of systems was completed and was negative except as mentioned in the HPI. Past Medical History Past Medical History: Asthma (Childhood asthma), Cancer (Cancer of right kidney), Hyperlipidemia, Hypertension, Osteoarthritis (OA) History of Any Multi-Drug Resistant Organisms: None Reported Additional Past Surgical History / Comment(s): Right nephrectomy Past Anesthesia/Blood Transfusion Reactions: No Reported Reaction Past Psychological History: No Psychological Hx Reported Smoking Status: Former smoker (Quit smoking in 1975) Past Alcohol Use History: Occasional Past Drug Use History: None Reported - Past Family History Mother Family Medical History: Cancer Additional Family Medical History / Comment(s): Anemia Father Family Medical History: Myocardial Infarction ([place]) (At age 45) Medications and Allergies Home Medications Medication Instructions Recorded Confirmed Type Cholecalciferol [Vitamin D3 (25 25 mcg PO DAILY 08/27/23 08/27/23 History Mcg = 1000 Iu)] Simvastatin [Zocor] 20 mg PO DAILY 08/27/23 08/27/23 History Vit C/E/Zn/Coppr/Lutein/Zeaxan 1 cap PO DAILY 08/27/23 08/27/23 History [Preservision Areds 2 Softgel] amLODIPine [Norvasc] 10 mg PO DAILY 08/27/23 08/27/23 History lisinopriL [Zestril] 20 mg PO DAILY 08/27/23 08/27/23 History Allergies Allergy/AdvReac Type Severity Reaction Status Date / Time No Known Allergies Allergy Verified 08/27/23 19:53 Surgical - Exam Vital Signs Temp Pulse Resp BP Pulse Ox 97.9 F 75 16 179/117 99 08/27/23 16:42 08/27/23 16:42 08/27/23 16:42 08/27/23 16:42 08/27/23 16:42 - General well developed, well nourished, no distress, no pain - Eyes PERRL, normal ocular movement, no pale, no icteric - ENT normal pinna, normal nares, normal mucosa, no hearing loss, no congestion - Neck Neck is supple, no lymphadenopathy. no masses, no bruits, trachea midline, no venous distension - Respiratory Lungs essentially clear throughout. Respirations are symmetrical and nonlabored. No wheezes, rhonchi or crackles. - Cardiovascular Regular rhythm and rate. S1 and S2 present, negative for S3, gallop or murmur. +1 edema to his bilateral lower extremities. - Abdomen Abdomen is soft, nontender and nondistended. Active bowel sounds present all 4 abdominal quadrants. No guarding or rigidity. No organomegaly appreciated. - Genitourinary Deferred - Rectum Deferred - Integumentary Skin is warm and dry. No clubbing or cyanosis is present. no rash, no growths, no abnormal pigmentation - Neurologic No focal deficits. normal coordination, normal sensation - Musculoskeletal Moves all 4 extremities with equal strength bilateral. normal gait - Psychiatric oriented to time, oriented to person, oriented to place, speech is normal, memory intact Results - Labs 08/28/23 03:49 08/28/23 03:49 Abnormal Lab Results - Last 24 Hours (Table) 08/27/23 08/27/23 08/27/23 Range/Units 19:20 19:20 23:19 APTT (22.0-30.0) sec Chloride 108 H (98-107) mmol/L BUN (9-20) mg/dL Total Bilirubin 2.0 H (0.2-1.3) mg/dL Troponin I 0.823 H* 0.832 H* (0.000-0.034) ng/mL Total Protein (6.3-8.2) g/dL 08/28/23 08/28/23 08/28/23 Range/Units 03:49 03:49 03:49 APTT 33.9 H (22.0-30.0) sec Chloride (98-107) mmol/L BUN 23 H (9-20) mg/dL Total Bilirubin 1.6 H (0.2-1.3) mg/dL Troponin I 0.820 H* (0.000-0.034) ng/mL Total Protein 6.2 L (6.3-8.2) g/dL Diabetes panel 08/27/23 08/28/23 Range/Units 19:20 03:49 Sodium 138 138 (137-145) mmol/L Potassium 4.6 3.8 (3.5-5.1) mmol/L Chloride 108 H 107 (98-107) mmol/L Carbon Dioxide 22 26 (22-30) mmol/L BUN 20 23 H (9-20) mg/dL Creatinine 1.12 1.16 (0.66-1.25) mg/dL Glucose 93 88 (74-99) mg/dL Calcium 10.0 9.5 (8.4-10.2) mg/dL AST 38 33 (17-59) U/L ALT 38 34 (4-49) U/L Alkaline Phosphatase 62 57 (38-126) U/L Total Protein 6.8 6.2 L (6.3-8.2) g/dL Albumin 4.2 3.7 (3.5-5.0) g/dL Calcium panel 08/27/23 08/28/23 Range/Units 19:20 03:49 Calcium 10.0 9.5 (8.4-10.2) mg/dL Albumin 4.2 3.7 (3.5-5.0) g/dL Pituitary panel 08/27/23 08/28/23 Range/Units 19:20 03:49 Sodium 138 138 (137-145) mmol/L Potassium 4.6 3.8 (3.5-5.1) mmol/L Chloride 108 H 107 (98-107) mmol/L Carbon Dioxide 22 26 (22-30) mmol/L BUN 20 23 H (9-20) mg/dL Creatinine 1.12 1.16 (0.66-1.25) mg/dL Glucose 93 88 (74-99) mg/dL Calcium 10.0 9.5 (8.4-10.2) mg/dL Adrenal panel 08/27/23 08/28/23 Range/Units 19:20 03:49 Sodium 138 138 (137-145) mmol/L Potassium 4.6 3.8 (3.5-5.1) mmol/L Chloride 108 H 107 (98-107) mmol/L Carbon Dioxide 22 26 (22-30) mmol/L BUN 20 23 H (9-20) mg/dL Creatinine 1.12 1.16 (0.66-1.25) mg/dL Glucose 93 88 (74-99) mg/dL Calcium 10.0 9.5 (8.4-10.2) mg/dL Total Bilirubin 2.0 H 1.6 H (0.2-1.3) mg/dL AST 38 33 (17-59) U/L ALT 38 34 (4-49) U/L Alkaline Phosphatase 62 57 (38-126) U/L Total Protein 6.8 6.2 L (6.3-8.2) g/dL Albumin 4.2 3.7 (3.5-5.0) g/dL - Imaging Chest x-ray: report reviewed, image reviewed EKG: image reviewed Additional studies: Cardiac catheterization films and transthoracic 2D echocardiogram films reviewed by Dr. Barba. Assessment and Plan Assessment: Multivessel coronary artery disease Acute non-ST elevated myocardial infarction this admission Acute systolic congestive heart failure with an ejection fraction of 25 to 30% Ischemic cardiomyopathy Hypertension Hyperlipidemia History of kidney cancer, status post right nephrectomy Remote history of nicotine dependence quit smoking in 1975 Childhood asthma Family history of early onset coronary artery disease with his father passing away at age 45 from a myocardial infarction Osteoarthritis Plan: The patient was seen and examined in the extended stay unit in conjunction with Dr. Linwood Barba from cardiothoracic surgery. His chart and diagnostics were reviewed. Dr. Barba discussed findings with Dr. Alvarez from cardiology. At this time the patient is not a surgical candidate due to diffuse left-sided coronary artery disease, history of anterior myocardial infarction with clot to his apex. The patient has nonreconstructable coronary artery disease and is not a surgical candidate. Continue to maximize medical management. Medical management other comorbidities per primary care and cardiology service. Dr. Barba discussed with the patient and family members present at the patient's bedside the findings on the cardiac catheterization and transthoracic 2D echocardiogram, and agree with the plan. Thank you Dr. Alvarez for this consult. I have personally seen and examined the patient, performed the documentation and the assessment and plan as written. Number of minutes spent on the visit: 30. ISABELLA Pacheco
[2023-08-28] MEDS: SODIUM CHLORIDE 0.9% 1,000 ML IV SCH (16:07)
[2023-08-28] MEDS: ATORVASTATIN 80 MG TAB PO SCH (20:02)
[2023-08-28] MEDS: MUPIROCIN 2% OINT 22 GM TUBE NASAL SCH (20:39)
[2023-08-29] MEDS ORDERED: HEPARIN SODIUM,PORCINE (1 ML) 2,500 UNIT in SODIUM CHLORIDE 0.9% 250 ML IRRIGATION PRN (07:00)
[2023-08-29] MEDS ORDERED: HEPARIN SODIUM,PORCINE 10,000 UNIT in SODIUM CHLORIDE 0.9% 1,000 ML IRRIGATION PRN (07:00)
[2023-08-29] MEDS: ISOSORBIDE MONONITRATE ER 30 MG TAB.ER.24H PO SCH (08:34)
[2023-08-29] MEDS: ASPIRIN 81 MG PO SCH (08:34)
[2023-08-29] MEDS: METOPROLOL SUCCINATE (ER) 25 MG TAB.ER.24H PO SCH (08:34)
--- NOTE | 2023-08-29 09:21 | P.PN ---
Subjective Progress Note Date: 08/29/23 History of present illness: This is a 73-year-old male with past medical history of hypertension, dyslipid emia. Patient presented to the hospital with new onset of CHF. Symptoms have been developing over the past 2 weeks and progressively worsening with shortness of breath primarily at nighttime as well as lower extremity edema. He had no prior history of coronary artery disease or congestive heart failure. Patient was started on IV Lasix. Patient underwent cardiac catheterization with Dr. Alec Alvarez found to have severe two-vessel coronary artery disease. Consult was placed with cardiothoracic surgery for evaluation for CABG. It was determined that patient was a poor candidate for CABG. Echocardiogram reveals EF of 25 to 30% and LV thrombus that is fairly large. Physical examination: Gen: This is a 73-year-old male in no acute distress VS: reviewed HEENT: Head is atraumatic, normocephalic. Pupils equal, round. Sclerae is anicteric. LUNGS: Good air entry bilaterally. No wheezes or rhonchi. No intercostal retractions. HEART: Regular rate and rhythm. No murmur. EXTREMITIES: No pedal edema. No calf tenderness. NEUROLOGICAL: Patient is awake, alert and oriented x3. Assessment: Acute non-ST elevated [place] Acute systolic heart failure Ischemic cardiomyopathy Severe two-vessel coronary artery disease Hypertension Hyperlipidemia Plan: Continue current cardiac medications: Aspirin 81 mg daily, atorvastatin 80 mg at bedtime, Imdur 30 mg daily, lisinopril 20 mg daily, Toprol-XL 25 mg daily Discontinue heparin drip and start patient on Eliquis 5 mg twice daily Transition IV Lasix to oral 40 mg twice daily Plan to obtain LifeVest on Thursday with discharge most likely on Thursday. Further recommendations to follow based upon clinical course Nurse practitioner note has been reviewed, I agree with documented findings and plan of care. Patient was seen and examined. Objective - Vital Signs Vital signs: Vital Signs Temp 97.6 F 08/29/23 08:21 Pulse 52 L 08/29/23 08:21 Resp 18 08/29/23 08:21 BP 122/73 08/29/23 08:21 Pulse Ox 96 08/29/23 08:21 FiO2 Intake & Output 08/28/23 08/29/23 08/29/23 18:59 06:59 18:59 Intake Total 465.598 240 Output Total 1200 400 Balance -734.402 -400 240 Weight 86.183 kg 81.7 kg Intake: IV 300 Intake, IV Titration 165.598 Amount Heparin Sod,Pork in 0.45% 165.598 NaCl 25,000 unit In 0.45 % NaCl 1 250ml.bag @ 11. 63 UNITS/KG/HR 10.023 mls /hr IV .Q24H [facility] Rx#: [id number] Oral 240 Output: Urine 1200 400 Other: Voiding Method Toilet Urinal # Voids 2 - Labs CBC & Chem 7: 08/28/23 03:49 08/28/23 03:49 Labs: Abnormal Lab Results - Last 24 Hours (Table) 08/29/23 08/29/23 Range/Units 02:55 06:03 APTT 58.6 H 62.9 H (22.0-30.0) sec
[2023-08-29] MEDS: APIXABAN 5 MG TAB PO SCH (09:42)
[2023-08-29] MEDS: FUROSEMIDE 40 MG TAB PO SCH (17:07)
--- NOTE | 2023-08-29 21:54 | P.PN ---
Subjective Progress Note Date: 08/29/23 71-year-old male came in with shortness of breath progressively worsening along with orthopnea proximal nocturnal dyspnea patient therapy given severe congestive heart failure with elevated BNP and pulmonary edema on x-ray patient was started on IV Lasix patient has been evaluated troponins but stable at 0.8 and BNP of 2400 patient appears to have some ST-T wave changes on EKG patient was then taken to [facility] found to have LAD and circumflex severe stenosis. Patient will undergo stenting of these blood vessels 08/29/2023 Patient is seen in follow-up with cardiology following for CHF exacerbation maintained on IV Lasix. Cardiology following and transitioning to oral Lasix. Plan is for obtaining a LifeVest which will likely occur on Thursday. Patient is afebrile with no reports of chest pain or worsening shortness of breath. Patient is tolerating diet and denies any nausea or vomiting. Patient reports to feeling extremely fatigued and minimally improved from admission. Encouraged increase activity as tolerated. Await LifeVest. Review of systems: Constitutional: reports of fatigue, no fever, or chills Cardiovascular: No reports of chest pain or palpitations Respiratory: reports of shortness of breath with minimal exertion GI: No reports of nausea, vomiting, or diarrhea, reports not much of an appetite : No reports of dysuria or retention Neurovascular: Generalized weakness reported All medications have been reviewed PHYSICAL EXAMINATION: GENERAL: The patient is lethargic although arousable, alert and oriented x3, not in any acute distress. Well developed, well nourished. Ill-appearing HEENT: Pupils are round and equally reacting to light. EOMI. No scleral icterus. No conjunctival pallor. Normocephalic, atraumatic. No pharyngeal erythema. No thyromegaly. CARDIOVASCULAR: S1 and S2 muffled PULMONARY: Diminished breath sounds bilaterally otherwise chest is clear to auscultation, no wheezing or crackles. ABDOMEN: Soft, nontender, nondistended, normoactive bowel sounds. No palpable organomegaly. MUSCULOSKELETAL: No joint swelling or deformity. EXTREMITIES: No cyanosis, clubbing, or pedal edema. NEUROLOGICAL: Gross neurological examination did not reveal any focal deficits. Diffusely weak SKIN: No rashes. Assessment: -Congestive heart failure patient appears to have acute systolic dysfunction with pulm edema and acute exacerbation -Ischemic cardiomyopathy -Acute non-ST elevation [place] -Left ventricular thrombus -Hypertension -DVT prophylaxis: Patient is presently on IV heparin and being transition to Eliquis -GI prophylaxis -Full code Plan: Patient was transition from IV Lasix to oral Lasix with cardiology following. Continue current cardiac medications with plans on obtaining a LifeVest likely on Thursday Will follow-up on repeat labs Patient has been transition to Eliquis and IV heparin discontinued Encourage increase activity as tolerated Overall prognosis is guarded Patient will likely discharge home after receiving LifeVest The impression and plan of care has been dictated by Eliana Godinez, Nurse Practitioner as directed. Dr. Dany MD I have performed a history and examination and MDM of this patient, discussed the same with the dictator, and agree with the dictator's assessment and plan as written ,documented as a scribe. Based on total visit time, I have performed more than 50% of the visit. Objective - Vital Signs Vital signs: Vital Signs Temp 97.6 F 08/29/23 08:21 Pulse 52 L 08/29/23 08:21 Resp 18 08/29/23 08:21 BP 122/73 08/29/23 08:21 Pulse Ox 96 08/29/23 08:21 FiO2 Intake & Output 08/28/23 08/29/23 08/29/23 18:59 06:59 18:59 Intake Total 465.598 240 Output Total 1200 400 Balance -734.402 -400 240 Weight 86.183 kg 81.7 kg Intake: IV 300 Intake, IV Titration 165.598 Amount Heparin Sod,Pork in 0.45% 165.598 NaCl 25,000 unit In 0.45 % NaCl 1 250ml.bag @ 11. 63 UNITS/KG/HR 10.023 mls /hr IV .Q24H [facility] Rx#: [id number] Oral 240 Output: Urine 1200 400 Other: Voiding Method Toilet Urinal # Voids 2 - Labs CBC & Chem 7: 08/28/23 03:49 08/28/23 03:49 Labs: Abnormal Lab Results - Last 24 Hours (Table) 08/29/23 08/29/23 Range/Units 02:55 06:03 APTT 58.6 H 62.9 H (22.0-30.0) sec
[2023-08-30 08:01] LABS: African American GFR (CKD) 70 (>60 ml/min/1.73 sqM); Anion Gap 4 mmol/L; Blood Urea Nitrogen 24 mg/dL (9-20); Calcium 9.7 mg/dL (8.4-10.2); Carbon Dioxide 26 mmol/L (22-30); Chloride 106 mmol/L (98-107); Glucose 91 mg/dL (74-99); Magnesium 2.1 mg/dL (1.6-2.3); Non-African American GFR(CKD) 60 (>60 ml/min/1.73 sqM); Sodium 136 mmol/L (137-145)
[2023-08-30 08:22] LABS: Basophils # (A) 0.1 k/uL (0-0.2); Basophils % (A) 1 %; Eosinophils # (A) 0.5 k/uL (0-0.7); Eosinophils % (A) 7 %; HCT 45.9 % (39.0-53.0); HGB 14.7 gm/dL (13.0-17.5); Lymphocytes # (A) 2.2 k/uL (1.0-4.8); Lymphocytes % (A) 29 %; MCH 30.1 pg (25.0-35.0); MCHC 31.9 g/dL (31.0-37.0); MCV 94.2 fL (80.0-100.0); Mean Platelet Volume 8.6; Monocytes # (A) 0.6 k/uL (0-1.0); Monocytes % (A) 7 %; Neutrophils # (A) 4.1 k/uL (1.3-7.7); Neutrophils % (A) 55 %; Platelet Count 157 k/uL (150-450); RBC 4.88 m/uL (4.30-5.90); RDW 13.6 % (11.5-15.5); WBC 7.6 k/uL (3.8-10.6)
--- NOTE | 2023-08-30 11:02 | P.PN ---
Subjective Progress Note Date: 08/30/23 History of present illness: This is a 73-year-old male with past medical history of hypertension, dyslipid emia. Patient presented to the hospital with new onset of CHF. Symptoms have been developing over the past 2 weeks and progressively worsening with shortness of breath primarily at nighttime as well as lower extremity edema. He had no prior history of coronary artery disease or congestive heart failure. Patient was started on IV Lasix. Patient underwent cardiac catheterization with Dr. Alec Alvarez found to have severe two-vessel coronary artery disease. Consult was placed with cardiothoracic surgery for evaluation for CABG. It was determined that patient was a poor candidate for CABG. Echocardiogram reveals EF of 25 to 30% and LV thrombus that is fairly large. 08/29 Heparin drip was discontinued yesterday and patient started on Eliquis for LV thrombus. Also IV Lasix was transitioned to oral yesterday. Patient denies any new concerns today. Plan is to obtain LifeVest tomorrow and discharged home following that. Blood pressure 119/79, heart rate in the 60s. Pulse ox 97% on room air. BUN 24 creatinine 1.2. Physical examination: Gen: This is a 73-year-old male in no acute distress VS: reviewed HEENT: Head is atraumatic, normocephalic. Pupils equal, round. Sclerae is anicteric. LUNGS: Good air entry bilaterally. No wheezes or rhonchi. No intercostal retractions. HEART: Regular rate and rhythm. No murmur. EXTREMITIES: No pedal edema. No calf tenderness. NEUROLOGICAL: Patient is awake, alert and oriented x3. Assessment: Acute non-ST elevated [place] Acute systolic heart failure Ischemic cardiomyopathy LV thrombus Severe two-vessel coronary artery disease Hypertension Hyperlipidemia Plan: Continue current cardiac medications: Aspirin 81 mg daily, atorvastatin 80 mg at bedtime, Imdur 30 mg daily, lisinopril 20 mg daily, Toprol-XL 25 mg daily Continue patient on Eliquis 5 mg twice daily Continue Lasix oral 40 mg twice daily Plan to obtain LifeVest on Thursday with discharge most likely on Thursday. Further recommendations to follow based upon clinical course Nurse practitioner note has been reviewed, I agree with documented findings and plan of care. Patient was seen and examined. Objective - Vital Signs Vital signs: Vital Signs Temp 97.4 F L 08/30/23 08:11 Pulse 62 04/28/24 08:11 Resp 18 08/30/23 08:11 BP 119/79 08/30/23 08:11 Pulse Ox 97 08/30/23 08:11 FiO2 Intake & Output 08/29/23 08/30/23 08/30/23 18:59 06:59 18:59 Intake Total 240 Output Total 200 1450 Balance 40 -1450 Intake: Oral 240 Output: Urine 200 1450 Other: Voiding Method Toilet Toilet Urinal Urinal - Labs CBC & Chem 7: 08/30/23 07:01 08/30/23 07:01 Labs: Abnormal Lab Results - Last 24 Hours (Table) 08/30/23 Range/Units 07:01 Sodium 136 L (137-145) mmol/L BUN 24 H (9-20) mg/dL Microbiology - Last 24 Hours (Table) 08/28/23 13:13 Nasal Screen MRSA/MSSA - Final Nasal Swab
--- NOTE | 2023-08-30 13:52 | P.PN ---
Subjective Progress Note Date: 08/30/23 71-year-old male came in with shortness of breath progressively worsening along with orthopnea proximal nocturnal dyspnea patient therapy given severe congestive heart failure with elevated BNP and pulmonary edema on x-ray patient was started on IV Lasix patient has been evaluated troponins but stable at 0.8 and BNP of 2400 patient appears to have some ST-T wave changes on EKG patient was then taken to [facility] found to have LAD and circumflex severe stenosis. Patient will undergo stenting of these blood vessels 08/29/2023 Patient is seen in follow-up with cardiology following for CHF exacerbation maintained on IV Lasix. Cardiology following and transitioning to oral Lasix. Plan is for obtaining a LifeVest which will likely occur on Thursday. Patient is afebrile with no reports of chest pain or worsening shortness of breath. Patient is tolerating diet and denies any nausea or vomiting. Patient reports to feeling extremely fatigued and minimally improved from admission. Encouraged increase activity as tolerated. Await LifeVest. 08/30/23: Patient seen and evaluated bedside, blood work reviewed, renal profile and hemoglobin remained stable. Potential discharge in next 24 hours waiting for life vest PHYSICAL EXAMINATION: GENERAL: The patient is lethargic although arousable, alert and oriented x3, not in any acute distress. Well developed, well nourished. Ill-appearing HEENT: Pupils are round and equally reacting to light. EOMI. No scleral icterus. No conjunctival pallor. Normocephalic, atraumatic. No pharyngeal erythema. No thyromegaly. CARDIOVASCULAR: S1 and S2 muffled PULMONARY: Diminished breath sounds bilaterally otherwise chest is clear to auscultation, no wheezing or crackles. ABDOMEN: Soft, nontender, nondistended, normoactive bowel sounds. No palpable organomegaly. MUSCULOSKELETAL: No joint swelling or deformity. EXTREMITIES: No cyanosis, clubbing, or pedal edema. NEUROLOGICAL: Gross neurological examination did not reveal any focal deficits. Diffusely weak SKIN: No rashes. Assessment: -Acute congestive heart failure systolic dysfunction -Ischemic cardiomyopathy -Acute non-ST elevation [place] -Multivessel coronary artery disease poor candidate for CABG -Left ventricular thrombus -Hypertension * In regards to congestive heart failure continue patient on Lasix, transition to oral Lasix, continue to monitor intake and output * In regards to non-ST elevated [place] s/p cardiac catheterization continue aspirin, Lipitor, Imdur, Toprol-XL * Patient underwent cardiac catheterization with Dr. Alec Alvarez found to have severe two-vessel coronary artery disease. Consult was placed with cardiothoracic surgery for evaluation for CABG. It was determined that patient was a poor candidate for CABG. Echocardiogram reveals EF of 25 to 30% and LV thrombus that is fairly large. * In regards to LV thrombus continue patient on Eliquis Objective - Vital Signs Vital signs: Vital Signs Temp 97.4 F L 08/30/23 08:11 Pulse 62 08/30/23 10:07 Resp 18 08/30/23 10:07 BP 119/79 08/30/23 08:11 Pulse Ox 97 08/30/23 08:11 FiO2 Intake & Output 08/29/23 08/30/23 08/30/23 18:59 06:59 18:59 Intake Total 240 358 Output Total 200 1450 Balance 40 -1450 358 Intake: Oral 240 358 Output: Urine 200 1450 Other: Voiding Method Toilet Toilet Toilet Urinal Urinal Urinal - Labs CBC & Chem 7: 08/30/23 07:01 08/30/23 07:01 Labs: Abnormal Lab Results - Last 24 Hours (Table) 08/30/23 Range/Units 07:01 Sodium 136 L (137-145) mmol/L BUN 24 H (9-20) mg/dL Microbiology - Last 24 Hours (Table) 08/28/23 13:13 Nasal Screen MRSA/MSSA - Final Nasal Swab
[2023-08-31 07:09] LABS: HGB 14.4 gm/dL (13.0-17.5); MCH 29.9 pg (25.0-35.0); MCV 93.7 fL (80.0-100.0); Mean Platelet Volume 7.9; Platelet Count 170 k/uL (150-450); RDW 13.3 % (11.5-15.5); WBC 8.6 k/uL (3.8-10.6)
[2023-08-31 07:18] LABS: African American GFR (CKD) 68 (>60 ml/min/1.73 sqM); Anion Gap 8 mmol/L; Blood Urea Nitrogen 26 mg/dL (9-20); Calcium 10.1 mg/dL (8.4-10.2); Carbon Dioxide 24 mmol/L (22-30); Chloride 105 mmol/L (98-107); Glucose 100 mg/dL (74-99); Non-African American GFR(CKD) 59 (>60 ml/min/1.73 sqM); Potassium 4.2 mmol/L (3.5-5.1); Sodium 137 mmol/L (137-145)
[2023-08-31] MEDS: DAPAGLIFLOZIN PROPANEDIOL 10 MG TABLET PO SCH (11:26)
[2023-08-31] MEDS: SPIRONOLACTONE 25 MG TAB PO SCH (11:26)
[2023-08-31 11:35] VITALS: BP 104/68; PULSE 51; RESP 16; TEMP 97.6
--- NOTE | 2023-08-31 12:22 | P.DS ---
Providers Date of admission: 08/27/23 20:33 Expected date of discharge: 08/31/23 Attending physician: Ramya Preciado Consults: 08/27/23 20:31 Consult Physician Routine Consulting Provider: [facility] Consult Reason/Comments: new onset chf, chest pain Do you want consulting provider notified?: Yes 08/28/23 11:32 Consult Physician Routine Consulting Provider: Yakov Knowles Consult Reason/Comments: CABG eval Do you want consulting provider notified?: Yes Primary care physician: Andrew [facility] Course: 71-year-old male came in with shortness of breath progressively worsening along with orthopnea proximal nocturnal dyspnea patient therapy given severe congestive heart failure with elevated BNP and pulmonary edema on x-ray patient was started on IV Lasix patient has been evaluated troponins but stable at 0.8 and BNP of 2400 patient appears to have some ST-T wave changes on EKG patient was then taken to [facility] found to have LAD and circumflex severe stenosis. Patient will undergo stenting of these blood vessels 08/29/2023 Patient is seen in follow-up with cardiology following for CHF exacerbation maintained on IV Lasix. Cardiology following and transitioning to oral Lasix. Plan is for obtaining a LifeVest which will likely occur on Thursday. Patient is afebrile with no reports of chest pain or worsening shortness of breath. Patient is tolerating diet and denies any nausea or vomiting. Patient reports to feeling extremely fatigued and minimally improved from admission. Encouraged increase activity as tolerated. Await LifeVest. 08/30/23: Patient seen and evaluated bedside, blood work reviewed, renal profile and hemoglobin remained stable. Potential discharge in next 24 hours waiting for life vest 08/31/23 : Patient seen and evaluated at bedside, patient seen by cardiology, waiting for LifeVest, cardiac medications adjusted and new scripts provided continue guideline directed medical therapy PHYSICAL EXAMINATION: GENERAL: The patient is lethargic although arousable, alert and oriented x3, not in any acute distress. Well developed, well nourished. Ill-appearing HEENT: Pupils are round and equally reacting to light. EOMI. No scleral icterus. No conjunctival pallor. Normocephalic, atraumatic. No pharyngeal erythema. No thyromegaly. CARDIOVASCULAR: S1 and S2 muffled PULMONARY: Diminished breath sounds bilaterally otherwise chest is clear to auscultation, no wheezing or crackles. ABDOMEN: Soft, nontender, nondistended, normoactive bowel sounds. No palpable organomegaly. MUSCULOSKELETAL: No joint swelling or deformity. EXTREMITIES: No cyanosis, clubbing, or pedal edema. NEUROLOGICAL: Gross neurological examination did not reveal any focal deficits. Diffusely weak SKIN: No rashes. Assessment: -Acute congestive heart failure systolic dysfunction -Ischemic cardiomyopathy -Acute non-ST elevation [place] -Multivessel coronary artery disease poor candidate for CABG -Left ventricular thrombus -Hypertension * In regards to congestive heart failure continue patient on Lasix, transition to oral Lasix, continue to monitor intake and output * In regards to non-ST elevated [place] s/p cardiac catheterization continue aspirin, Lipitor, Imdur, Toprol-XL * Patient underwent cardiac catheterization with Dr. Alec Alvarez found to have severe two-vessel coronary artery disease. * Consult was placed with cardiothoracic surgery for evaluation for CABG. It was determined that patient was a poor candidate for CABG. Echocardiogram reveals EF of 25 to 30% and LV thrombus that is fairly large. * In regards to LV thrombus continue patient on Eliquis Patient Condition at Discharge: Fair Plan - Discharge Summary Discharge Rx Participant: No New Discharge Prescriptions: New Aspirin 81 mg PO DAILY 30 Days #30 tab Apixaban [Eliquis] 5 mg PO BID 30 Days #60 tab Furosemide [Lasix] 40 mg PO BID@0900,1600 30 Days #60 tab Spironolactone [Aldactone] 25 mg PO DAILY 30 Days #30 tab Dapagliflozin Propanediol [Farxiga] 10 mg PO DAILY 30 Days #30 tab Isosorbide Mononitrate ER [Imdur] 30 mg PO DAILY 30 Days #30 tab Atorvastatin [Lipitor] 80 mg PO HS 30 Days #30 tab Metoprolol Succinate (ER) [Toprol XL] 25 mg PO DAILY 30 Days #30 tab Continue Cholecalciferol [Vitamin D3 (25 Mcg = 1000 Iu)] 25 mcg PO DAILY lisinopriL [Zestril] 20 mg PO DAILY Discontinued amLODIPine [Norvasc] 10 mg PO DAILY Simvastatin [Zocor] 20 mg PO DAILY Vit C/E/Zn/Coppr/Lutein/Zeaxan [Preservision Areds 2 Softgel] 1 cap PO DAILY Discharge Medication List Cholecalciferol [Vitamin D3 (25 Mcg = 1000 Iu)] 25 mcg PO DAILY 08/27/23 [History] lisinopriL [Zestril] 20 mg PO DAILY 08/27/23 [History] Apixaban [Eliquis] 5 mg PO BID 30 Days #60 tab 08/31/23 [Rx] Aspirin 81 mg PO DAILY 30 Days #30 tab 08/31/23 [Rx] Atorvastatin [Lipitor] 80 mg PO HS 30 Days #30 tab 08/31/23 [Rx] Dapagliflozin Propanediol [Farxiga] 10 mg PO DAILY 30 Days #30 tab 08/31/23 [Rx] Furosemide [Lasix] 40 mg PO BID@0900,1600 30 Days #60 tab 08/31/23 [Rx] Isosorbide Mononitrate ER [Imdur] 30 mg PO DAILY 30 Days #30 tab 08/31/23 [Rx] Metoprolol Succinate (ER) [Toprol XL] 25 mg PO DAILY 30 Days #30 tab 08/31/23 [Rx] Spironolactone [Aldactone] 25 mg PO DAILY 30 Days #30 tab 08/31/23 [Rx] Follow up Appointment(s)/Referral(s): Andrew Wasserman DO [Primary Care Provider] - 1-2 days
--- NOTE | 2023-08-31 14:00 | P.PN ---
Subjective HISTORY OF PRESENT ILLNESS: This is a 73-year-old male with past medical history of hypertension, dyslipidemia. Patient presented to the hospital with new onset of CHF. Symptoms have been developing over the past 2 weeks and progressively worsening with shortness of breath primarily at nighttime as well as lower extremity edema. He had no prior history of coronary artery disease or congestive heart failure. Patient was started on IV Lasix. Patient underwent cardiac catheterization with Dr. Alec Alvarez found to have severe two-vessel coronary artery disease. Consult was placed with cardiothoracic surgery for evaluation for CABG. It was determined that patient was a poor candidate for CABG. Echocardiogram reveals EF of 25 to 30% and LV thrombus that is fairly large. 08/29 Heparin drip was discontinued yesterday and patient started on Eliquis for LV thrombus. Also IV Lasix was transitioned to oral yesterday. Patient denies any new concerns today. Plan is to obtain LifeVest tomorrow and discharged home following that. Blood pressure 119/79, heart rate in the 60s. Pulse ox 97% on room air. BUN 24 creatinine 1.2. 08/31/2023 Patient examined this morning at the bedside. Patient denies chest pain or pressure. He denies shortness of breath. Vital signs are stable. Patient is hoping to be discharged home today. PHYSICAL EXAM: VITAL SIGNS: Reviewed. GENERAL: Well-developed in no acute distress. NECK: Supple. No JVD or thyromegaly LUNGS: Respirations even and unlabored. Lungs essentially clear to auscultation bilaterally. HEART: Regular rate and rhythm. S1 and S2 heard. EXTREMITIES: Normal range of motion. No clubbing or cyanosis. Peripheral pulses intact. No lower extremity edema ASSESSMENT: Acute non-ST elevated [place] Acute systolic heart failure Ischemic cardiomyopathy LV thrombus Severe two-vessel coronary artery disease, not a candidate for CABG Hypertension Hyperlipidemia PLAN: Continue current cardiac medications Add Aldactone 25 mg daily Add Farxiga 10 mg daily Recommend LifeVest at the time of discharge to prevent sudden cardiac secondary to ischemic cardiomyopathy Patient may be discharged home this afternoon pending placement of LifeVest Patient to follow-up postdischarge with Dr. Alvarez Nurse practitioner note has been reviewed by physician. Signing provider agrees with the documented findings, assessment, and plan of care documented by [employer] as a scribe. Objective - Vital Signs Vital signs: Vital Signs Temp 97.6 F 08/31/23 11:22 Pulse 51 L 08/31/23 11:22 Resp 16 08/31/23 11:22 BP 104/68 08/31/23 11:22 Pulse Ox 98 08/31/23 11:22 FiO2 Intake & Output 08/30/23 08/31/23 08/31/23 18:59 06:59 18:59 Intake Total 1016 118 Output Total 750 1400 Balance 266 -1400 118 Weight 82.8 kg Intake: Oral 1016 118 Output: Urine 750 1400 Other: Voiding Method Toilet Toilet Toilet Urinal Urinal Urinal - Labs CBC & Chem 7: 08/31/23 06:40 08/31/23 06:40 Labs: Abnormal Lab Results - Last 24 Hours (Table) 08/31/23 Range/Units 06:40 BUN 26 H (9-20) mg/dL Glucose 100 H (74-99) mg/dL
--- NOTE | 2023-09-02 20:03 | CT ---
EXAMINATION TYPE: CT chest wo con CT DLP: 387.3 mGycm, Automated exposure control for dose reduction was used. DATE OF EXAM: 08/28/2023 2:17 PM COMPARISON: Chest radiograph from same day. Multiple CTs of the chest with most recent on . CLINICAL INDICATION:Male, 73 years old with history of Preop cardiac surgery, evaluation of aorta; PH H, Preop cardiac surgery, evaluation of aorta TECHNIQUE: Multiple axial images were obtained through the chest. Sagittal and coronal reformats were created for review. Contrast used: mL of (None if empty) Oral contrast used: (None if empty) FINDINGS: LUNGS/ PLEURA: The lung parenchyma appears unremarkable. Very small bilateral pleural effusions. AIRWAY: Patent and unremarkable. HEART: The heart is mildly increased in size.. Mild calcific plaque in the distal aortic arch. No kati cific plaque seen in the ascending aorta. Almost no plaque in the descending thoracic aorta. Extensiv e calcific coronary artery disease MEDIASTINUM: No gross evidence of adenopathy. VASCULATURE: No aortic aneurysm. MUSCULOSKELETAL: No acute osseous abnormalities SOFT TISSUES/LYMPH NODES: Unremarkable. LOWER NECK: No significant findings. UPPER ABDOMEN: No significant findings. Surgical clips in the right quadrant retroperitoneum. IMPRESSION: Coronary artery disease. No calcific atherosclerotic change in the ascending aorta. Very small bilateral pleural effusions. Follow up recommendations for incidental pulmonary nodules, if there are any, are per [employer] [place] [employer] [employer] or [employer]. https://radiopaedia.org/articles/soneuxymgl-epvlaud-mtkvwyinq-wbqcce-[email or web address]-[email or web address]?lang=us
== END 2023-08-31 17:56 | disposition home or self-care (01) | DRG 280 ==
LOC: EC 16:32 → 3SCARD 20:33
PROVIDERS: ADMIT Hospitalist; ATTEND Hospitalist
PROC: B2111ZZ Fluoroscopy of Multiple Coronary Arteries using Low Osmolar Contrast (ICD-10-PCS; principal; 2023-08-28 14:50)
PROC: 4A023N7 Measurement of Cardiac Sampling and Pressure, Left Heart, Percutaneous Approach (ICD-10-PCS; principal; 2023-08-28 14:50)
DX: I11.0 Hypertensive heart disease with heart failure (principal); I50.21 Acute systolic (congestive) heart failure; I21.4 Non-ST elevation (NSTEMI) myocardial infarction; J44.89 Other specified chronic obstructive pulmonary disease; I34.0 Nonrheumatic mitral (valve) insufficiency; I51.3 Intracardiac thrombosis, not elsewhere classified; I25.10 Atherosclerotic heart disease of native coronary artery without angina pectoris; I25.84 Coronary atherosclerosis due to calcified coronary lesion; I25.5 Ischemic cardiomyopathy; I49.3 Ventricular premature depolarization; E78.5 Hyperlipidemia, unspecified; I25.2 Old myocardial infarction; M19.90 Unspecified osteoarthritis, unspecified site; G47.9 Sleep disorder, unspecified; Z79.899 Other long term (current) drug therapy; Z87.891 Personal history of nicotine dependence; Z85.528 Personal history of other malignant neoplasm of kidney
CPT/HCPCS: 36415; 71046; 71250; 80048; 80053; 83735; 83880; 84484; 85025; 85027; 85610; 85730; 87070; 87636; 93005; 93306; 93458; 96365; 96366; 96375; 99291

== ENCOUNTER 2023-10-13 09:38 | Observation (INO) | payer MEDICARE, OTHER ==
--- NOTE | 2023-10-13 10:12 | ED ---
General Adult HPI - General Chief complaint: Recheck/Abnormal Lab/Rx Stated complaint: abd labs-Kidney Time Seen by Provider: 10/13/23 09:50 Source: patient, family, RN notes reviewed Mode of arrival: ambulatory Limitations: no limitations - History of Present Illness Initial comments: Patient is a pleasant 73-year-old male present to the emergency department with concern for lab abnormality. Patient had follow-up appointment with his hvac controls technician Dr. Yeboah. Patient had abnormal potassium, BUN and creatinine. Patient only has 1 kidney secondary to history of kidney cancer. Patient states otherwise he feels fine and has no complaints. Patient was in the hospital a couple months ago and started several new medications including diuretic. - Related Data Home Medications Medication Instructions Recorded Confirmed Cholecalciferol [Vitamin D3 (25 25 mcg PO DAILY 08/27/23 10/13/23 Mcg = 1000 Iu)] lisinopriL [Zestril] 20 mg PO DAILY 08/27/23 10/13/23 Previous Rx's Medication Instructions Recorded Apixaban [Eliquis] 5 mg PO BID 30 Days #60 tab 08/31/23 Aspirin 81 mg PO DAILY 30 Days #30 tab 08/31/23 Atorvastatin [Lipitor] 80 mg PO HS 30 Days #30 tab 08/31/23 Dapagliflozin Propanediol [Farxiga] 10 mg PO DAILY 30 Days #30 tab 08/31/23 Furosemide [Lasix] 40 mg PO BID@0900,1600 30 Days #60 08/31/23 tab Isosorbide Mononitrate ER [Imdur] 30 mg PO DAILY 30 Days #30 tab 08/31/23 Metoprolol Succinate (ER) [Toprol 25 mg PO DAILY 30 Days #30 tab 08/31/23 XL] Spironolactone [Aldactone] 25 mg PO DAILY 30 Days #30 tab 08/31/23 Allergies Allergy/AdvReac Type Severity Reaction Status Date / Time No Known Allergies Allergy Verified 10/13/23 11:23 Review of Systems ROS Statement: Those systems with pertinent positive or pertinent negative responses have been documented in the HPI. ROS Other: All systems not noted in ROS Statement are negative. Constitutional: Denies: fever Eyes: Denies: eye pain ENT: Denies: ear pain Respiratory: Denies: cough, dyspnea Cardiovascular: Denies: chest pain Endocrine: Denies: fatigue Gastrointestinal: Denies: abdominal pain Past Medical History Past Medical History: Asthma, Cancer, Hyperlipidemia, Hypertension, Osteoarthritis (OA) Additional Past Medical History / Comment(s): Kidney CA History of Any Multi-Drug Resistant Organisms: None Reported Additional Past Surgical History / Comment(s): Right nephrectomy, cataract removed R eye Past Anesthesia/Blood Transfusion Reactions: No Reported Reaction Past Psychological History: No Psychological Hx Reported Smoking Status: Former smoker Past Alcohol Use History: Rare Past Drug Use History: None Reported - Past Family History Mother Family Medical History: Cancer Additional Family Medical History / Comment(s): Anemia Father Family Medical History: Myocardial Infarction ([place]) General Exam Limitations: no limitations General appearance: alert, in no apparent distress Head exam: Present: normocephalic Eye exam: Present: normal appearance ENT exam: Present: normal oropharynx. Absent: mucous membranes dry Neck exam: Present: normal inspection Respiratory exam: Present: normal lung sounds bilaterally Cardiovascular Exam: Present: regular rate, normal rhythm GI/Abdominal exam: Present: soft. Absent: tenderness Extremities exam: Present: normal inspection Back exam: Present: normal inspection Neurological exam: Present: alert Psychiatric exam: Present: normal affect, normal mood Skin exam: Present: normal color Course Vital Signs 10/13/23 10/13/23 09:39 10:12 Temperature 97.3 F L 98.1 F Pulse Rate 61 57 L Respiratory 16 Rate Blood Pressure 99/63 110/68 O2 Sat by Pulse 100 98 Oximetry EKG Findings - EKG Results: EKG: interpreted by ERMD (Inferior Q waves. Nonspecific ST-T.), sinus rhythm, normal axis EKG shows: bradycardia Medical Decision Making - Medical Decision Making Was pt. sent in by a medical professional or institution (, PA, [facility], urgent care, hospital, or care home...) When possible be specific @ -Patient was sent from Dr. Yeboah's office. Did you speak to anyone other than the patient for history (EMS, parent, family, police, friend...)? What history was obtained from this source @ -I did speak with hvac controls technician Dr. Yeboah regarding patient's labs Did you review nursing and triage notes (agree or disagree)? Why? @ -I reviewed and agree with nursing and triage notes Were old charts reviewed (outside hosp., previous admission, EMS record, old EKG, old radiological studies, urgent care reports/EKG's, care home records)? Report findings @ -Previous labs reviewed including potassium, BUN and creatinine Differential Diagnosis (chest pain, altered mental status, abdominal pain women, abdominal pain men, vaginal bleeding, weakness, fever, dyspnea, syncope, headache, dizziness, GI bleed, back pain, seizure, CVA, palpatations, mental health, musculoskeletal)? @ -Differential Weakness: Hypoglycemia, shock, sepsis, hyponatremia, anemia, infection, [place], ETOH, adverse medicine reaction, overdose, stroke, this is not meant to be an all-inclusive list. EKG interpreted by me (3pts min.). @ -As above X-rays interpreted by me (1pt min.). @ -Chest x-ray shows no acute process. LifeVest is present. CT interpreted by me (1pt min.). @ -None done U/S interpreted by me (1pt. min.). @ -None done What testing was considered but not performed or refused? (CT, X-rays, U/S, labs)? Why? @ -None What meds were considered but not given or refused? Why? @ -Consider treatment for hyperkalemia however repeat potassium today is improved Did you discuss the management of the patient with other professionals (professionals i.e. , PA, [facility], lab, RT, psych nurse, social services counselor, aircraft time clerk, teacher, senior compliance officer, director of casework department)? Give summary @ -Case also discussed with Dr. Ramirez who will admit covering Dr. Wasserman Was smoking cessation discussed for >3mins.? @ -No Was critical care preformed (if so, how long)? @ -No Were there social determinants of health that impacted care today? How? (Homel essness, low income, unemployed, alcoholism, drug addiction, transportation, low edu. Level, literacy, decrease access to med. care, long term, rehab)? @ -No Was there de-escalation of care discussed even if they declined (Discuss DNR or withdrawal of care, Hospice)? DNR status @ -No What co-morbidities impacted this encounter? (DM, HTN, Smoking, COPD, CAD, Cancer, CVA, ARF, Chemo, Hep., AIDS, mental health diagnosis, sleep apnea, morbid obesity)? @ -Patient only has 1 functioning kidney secondary to history of renal cancer Was patient admitted / discharged? Hospital course, mention meds given and route, prescriptions, significant lab abnormalities, going to OR and other pertinent info. @ -Patient presents with abnormal labs. Repeat blood work slightly improved. Patient will be admitted with hydration and further testing. Admission orders written. Undiagnosed new problem with uncertain prognosis? @ -No Drug Therapy requiring intensive monitoring for toxicity (Heparin, Nitro, Insulin, Cardizem)? @ -No Were any procedures done? @ -No Diagnosis/symptom? @ -Acute kidney injury Acute, or Chronic, or Acute on Chronic? @ -Acute Uncomplicated (without systemic symptoms) or Complicated (systemic symptoms)? @ -Default Side effects of treatment? @ -No Exacerbation, Progression, or Severe Exacerbation? @ -No Poses a threat to life or bodily function? How? (Chest pain, USA, [place], pneumonia, PE, COPD, DKA, ARF, appy, cholecystitis, CVA, Diverticulitis, Homicidal, Suicidal, threat to staff... and all critical care pts) @ -Threat to renal function - Lab Data Result diagrams: 10/13/23 10:24 10/13/23 10:24 Lab Results 10/13/23 10/13/23 Range/Units 10:24 10:24 WBC 4.2 (3.8-10.6) k/uL RBC 4.22 L (4.30-5.90) m/uL Hgb 12.5 L (13.0-17.5) gm/dL Hct 37.1 L (39.0-53.0) % MCV 88.0 D (80.0-100.0) fL MCH 29.7 (25.0-35.0) pg MCHC 33.8 (31.0-37.0) g/dL RDW 12.6 (11.5-15.5) % Plt Count 130 L (150-450) k/uL MPV 8.1 Neutrophils % 58 % Lymphocytes % 30 % Monocytes % 7 % Eosinophils % 3 % Basophils % 1 % Neutrophils # 2.5 (1.3-7.7) k/uL Lymphocytes # 1.2 (1.0-4.8) k/uL Monocytes # 0.3 (0-1.0) k/uL Eosinophils # 0.1 (0-0.7) k/uL Basophils # 0.0 (0-0.2) k/uL Sodium 135 L (137-145) mmol/L Potassium 4.8 (3.5-5.1) mmol/L Chloride 107 (98-107) mmol/L Carbon Dioxide 21 L (22-30) mmol/L Anion Gap 7 mmol/L BUN 76 H (9-20) mg/dL Creatinine 1.76 H (0.66-1.25) mg/dL Est GFR (CKD-EPI)AfAm 44 (>60 ml/min/1.73 sqM) Est GFR (CKD-EPI)NonAf 38 (>60 ml/min/1.73 sqM) Glucose 93 (74-99) mg/dL Calcium 10.1 (8.4-10.2) mg/dL Magnesium 2.1 (1.6-2.3) mg/dL Total Bilirubin 1.1 (0.2-1.3) mg/dL AST 25 (17-59) U/L ALT 22 (4-49) U/L Alkaline Phosphatase 46 (38-126) U/L Total Protein 6.5 (6.3-8.2) g/dL Albumin 4.1 (3.5-5.0) g/dL Disposition Clinical Impression: Acute kidney injury Disposition: ADMITTED IP TO THIS HOSP Is patient prescribed a controlled substance at d/c from ED?: No Referrals: Andrew Wasserman DO [Primary Care Provider] - 1-2 days Time of Disposition: 11:34
[2023-10-13] MEDS: SODIUM CHLORIDE 0.9% 1,000 ML IV STA (10:30)
--- NOTE | 2023-10-13 10:47 | XR ---
EXAMINATION TYPE: XR chest 2V DATE OF EXAM: 10/13/2023 COMPARISON: 08/27/2023 HISTORY: Shortness of breath TECHNIQUE: Frontal and lateral views of the chest are obtained. FINDINGS: Scattered senescent parenchymal changes noted. Hyperinflation compatible with COPD. No evidence for infiltrate. No evidence for atelectasis. Heart size is stable. Mediastinal structures are stable and grossly unremarkable. No evidence for hilar prominence. Degenerative changes dorsal spine. IMPRESSION: 1. No evidence for acute pulmonary disease.
[2023-10-13 11:09] LABS: ALT 22 U/L (4-49); AST 25 U/L (17-59); African American GFR (CKD) 44 (>60 ml/min/1.73 sqM); Albumin 4.1 g/dL (3.5-5.0); Alkaline Phosphatase 46 U/L (38-126); Anion Gap 7 mmol/L; Blood Urea Nitrogen 76 mg/dL (9-20); Calcium 10.1 mg/dL (8.4-10.2); Carbon Dioxide 21 mmol/L (22-30); Chloride 107 mmol/L (98-107); Glucose 93 mg/dL (74-99); Magnesium 2.1 mg/dL (1.6-2.3); Non-African American GFR(CKD) 38 (>60 ml/min/1.73 sqM); Potassium 4.8 mmol/L (3.5-5.1); Sodium 135 mmol/L (137-145); Total Bilirubin 1.1 mg/dL (0.2-1.3); Total Protein 6.5 g/dL (6.3-8.2)
[2023-10-13 11:11] LABS: Basophils % (A) 1 %; Eosinophils # (A) 0.1 k/uL (0-0.7); Eosinophils % (A) 3 %; HCT 37.1 % (39.0-53.0); HGB 12.5 gm/dL (13.0-17.5); Lymphocytes # (A) 1.2 k/uL (1.0-4.8); Lymphocytes % (A) 30 %; MCH 29.7 pg (25.0-35.0); MCHC 33.8 g/dL (31.0-37.0); Mean Platelet Volume 8.1; Monocytes # (A) 0.3 k/uL (0-1.0); Monocytes % (A) 7 %; Neutrophils # (A) 2.5 k/uL (1.3-7.7); Neutrophils % (A) 58 %; Platelet Count 130 k/uL (150-450); RBC 4.22 m/uL (4.30-5.90); RDW 12.6 % (11.5-15.5); WBC 4.2 k/uL (3.8-10.6)
[2023-10-13] MEDS ORDERED: NALOXONE 0.4 MG/ML 1 ML VIAL IV PRN (11:34)
--- NOTE | 2023-10-13 19:14 | P.HPIM ---
History of Present Illness H&P Date: 10/13/23 Chief Complaint: Abnormal lab Patient is a 71-year-old male with a past medical history of ischemic cardiomyopathy ejection fraction 25 to 30% and LV thrombus which is fairly large on anticoagulation with Eliquis, multivessel coronary artery disease/poor candidate for CABG, left atrial thrombus and hypertension and other medical problems. Also has history of right renal mass status post nephrectomy.. Patient was sent to ER due to abnormal laboratory data. Patient had laboratory workup done by his primary care physician few days ago and does have follow-up appointment with Dr. Yeboah today and was found his elevated BUN/creatinine and also potassium level. Patient sent to ER. Patient was recently discharged from the hospital on 08/31/2023 due to acute CHF and non-ST elevated IA. Patient had a cardiac catheterization showed multivessel coronary disease and poor candidate for CABG as per CT surgery. Maximal medical therapy was recommended. Otherwise patient denies any complaints of chest pain or shortness of breath. Denies any worsening leg swelling. No nausea vomiting abdominal pain or diarrhea. Patient has been taking Lasix 40 mg twice daily and also on Aldactone at home. Chest x-ray showed no evidence for acute pulmonary disease. EKG showed sinus bradycardia with possible left lateral IA. Laboratory test showed WBC 4.2 hemoglobin 12.5 and platelets 130 sodium 135 potassium 4.8 chloride 107 bicarb is 21 BUN 76 and creatinine 1.76 and calcium 10.1 magnesium 2.1 liver enzymes are not elevated. Review of Systems Constitutional: Patient denies any fever or chills . No generalized weakness or weight loss. Abdomen: Patient denied nausea vomiting and diarrhea and abdominal pain. Cardiovascular: Patient denies any chest pain or short of breath no palpitations. Respiratory: patient denied any cough or sputum production. No shortness of breath Neurologic: Patient denied any numbness or tingling. no headache. Musculoskeletal: Patient denies any complaints of joint swelling or deformity. Skin: Negative Psychiatric: Negative Endocrine: No heat or cold intolerance. No recent weight gain. Genitourinary: No dysuria or hematuria. All other 14 point ROS negative except the above Past Medical History Past Medical History: Asthma, Cancer, Hyperlipidemia, Hypertension, Osteoarthr itis (OA) Additional Past Medical History / Comment(s): Kidney CA History of Any Multi-Drug Resistant Organisms: None Reported Additional Past Surgical History / Comment(s): Right nephrectomy, cataract removed R eye Past Anesthesia/Blood Transfusion Reactions: No Reported Reaction Past Psychological History: No Psychological Hx Reported Smoking Status: Former smoker Past Alcohol Use History: Rare Past Drug Use History: None Reported - Past Family History Mother Family Medical History: Cancer Additional Family Medical History / Comment(s): Anemia Father Family Medical History: Myocardial Infarction ([place]) Medications and Allergies Home Medications Medication Instructions Recorded Confirmed Type Cholecalciferol [Vitamin D3 (25 25 mcg PO DAILY 08/27/23 10/13/23 History Mcg = 1000 Iu)] lisinopriL [Zestril] 20 mg PO DAILY 08/27/23 10/13/23 History Apixaban [Eliquis] 5 mg PO BID 30 Days #60 tab 08/31/23 10/13/23 Rx Aspirin 81 mg PO DAILY 30 Days #30 tab 08/31/23 10/13/23 Rx Atorvastatin [Lipitor] 80 mg PO HS 30 Days #30 tab 08/31/23 10/13/23 Rx Dapagliflozin Propanediol [Farxiga] 10 mg PO DAILY 30 Days #30 tab 08/31/23 10/13/23 Rx Furosemide [Lasix] 40 mg PO BID@0900,1600 30 Days #60 08/31/23 10/13/23 Rx tab Isosorbide Mononitrate ER [Imdur] 30 mg PO DAILY 30 Days #30 tab 08/31/23 10/13/23 Rx Metoprolol Succinate (ER) [Toprol 25 mg PO DAILY 30 Days #30 tab 08/31/23 10/13/23 Rx XL] Spironolactone [Aldactone] 25 mg PO DAILY 30 Days #30 tab 08/31/23 10/13/23 Rx Allergies Allergy/AdvReac Type Severity Reaction Status Date / Time No Known Allergies Allergy Verified 10/13/23 11:23 Physical Exam Vitals: Vital Signs Temp Pulse Resp BP Pulse Ox 10/13/23 13:39 98.3 F 50 L 20 95/59 100 10/13/23 12:02 97.9 F 51 L 17 99/68 99 10/13/23 10:12 98.1 F 57 L 110/68 98 10/13/23 09:39 97.3 F L 61 16 99/63 100 Intake and Output 10/12/23 10/13/23 10/13/23 22:59 06:59 14:59 Other: Weight 80.286 kg PHYSICAL EXAMINATION: Patient is lying in the bed comfortably, no acute distress, awake alert and oriented.. HEENT: Normocephalic. Neck is supple. Pupils reactive. Nostrils clear. Oral cavity is moist. Neck reveals no JVD, carotid bruits, or thyromegaly. CHEST EXAMINATION: Trachea is central. Symmetrical expansion. Lung wood clear to auscultation and percussion. CARDIAC: Normal S1, S2 with no gallops. No murmurs ABDOMEN: Soft. Bowel sounds normal. No organomegaly. No abdominal bruits. Extremities: reveal no edema. No clubbing or cyanosis Neurologically awake, alert, oriented x3 with well-coordinated movements. No focal deficits noted Skin: No rash or skin lesions. Psychiatric: Coperative. Nonsuicidal Musculoskeletal: No joint swelling or deformity. Normal range of motion. Results CBC & Chem 7: 10/13/23 10:24 10/13/23 10:24 Labs: Abnormal Lab Results - Last 24 Hours (Table) 10/13/23 10/13/23 Range/Units 10:24 10:24 RBC 4.22 L (4.30-5.90) m/uL Hgb 12.5 L (13.0-17.5) gm/dL Hct 37.1 L (39.0-53.0) % Plt Count 130 L (150-450) k/uL Sodium 135 L (137-145) mmol/L Carbon Dioxide 21 L (22-30) mmol/L BUN 76 H (9-20) mg/dL Creatinine 1.76 H (0.66-1.25) mg/dL Thrombosis Risk Factor Assmnt - DVT/VTE Prophylaxis DVT/VTE Prophylaxis: Pharmacologic Prophylaxis ordered Assessment and Plan Assessment: Acute kidney injury likely vasomotor nephropathy with diuresis. Creatinine 1.76 on admission. Baseline 1.2 CKD stage III due to nephrosclerosis Ischemic cardiomyopathy with ejection fraction 25 to 30%. Patient is on LifeVest currently. LV thrombus which is fairly large. As per TTE on 08/27/2023. Currently on anticoagulation with Eliquis. Chronic CHF with systolic dysfunction. Hypertension Hyperlipidemia History of right renal cancer status post nephrectomy Osteoarthritis Asthma not in exacerbation Prior history of smoking DVT prophylaxis patient is already on anticoagulation Plan: Patient will be continued on telemonitoring. Lasix, lisinopril, oxycodone and spironolactone is on hold due to acute kidney injury. Continue gentle IV hydration and follow-up renal function. Continue with Imdur, metoprolol and aspirin, statins and anticoagulation with Eliquis. Cardiology was consulted for evaluation. Continue to follow closely. Prognosis guarded. Time with Patient: Greater than 30
[2023-10-13] MEDS: ATORVASTATIN 80 MG TAB PO SCH (20:33)
[2023-10-13] MEDS: APIXABAN 5 MG TAB PO SCH (20:33)
[2023-10-14 08:39] LABS: Basophils # (A) 0.03 X 10*3/uL (0.00-0.10); Basophils % (A) 0.6 %; Eosinophils # (A) 0.21 X 10*3/uL (0.04-0.35); HCT 35.2 % (39.6-50.0); HGB 11.5 g/dL (13.0-17.0); Lymphocytes % (A) 40.1 %; MCH 29.7 pg (27.0-32.0); MCHC 32.7 g/dL (32.0-37.0); Mean Platelet Volume 10.7 FL (9.5-12.2); Monocytes # (A) 0.42 X 10*3/uL (0.20-1.00); NRBC Per 100 WBC 0 X 10*3/uL (0.00-0.01); Neutrophils # (A) 2.47 X 10*3/uL (1.80-7.70); Neutrophils % (A) 47.1 %; Platelet Count 115 X 10*3/uL (140-440); RBC 3.87 X 10*6/uL (4.40-5.60); RDW 12.6 % (11.5-14.5); WBC 5.24 X 10*3/uL (4.50-10.00)
[2023-10-14] MEDS ORDERED: DAPAGLIFLOZIN PROPANEDIOL 10 MG TABLET PO SCH (09:00)
[2023-10-14] MEDS: METOPROLOL SUCCINATE (ER) 25 MG TAB.ER.24H PO SCH (09:12)
[2023-10-14 09:13] LABS: BUN/Creat Ratio 39.78 Ratio (12.00-20.00); Blood Urea Nitrogen 71.6 mg/dL (9.0-27.0); Glucose 89 mg/dL (70-110); Magnesium 2.1 mg/dL (1.5-2.4)
[2023-10-14 09:14] LABS: Calcium 9.4 mg/dL (8.7-10.3); Carbon Dioxide 17.2 mmol/L (21.6-31.8); Chloride 107 mmol/L (96-109); Phosphorus 3.9 mg/dL (2.4-5.1); Potassium 5.4 mmol/L (3.5-5.5); Sodium 134 mmol/L (135-145)
[2023-10-14] MEDS: ISOSORBIDE MONONITRATE ER 30 MG TAB.ER.24H PO SCH (09:14)
[2023-10-14] MEDS: CHOLECALCIFEROL 25 MCG (1000 IU) TABLET PO SCH (09:16)
[2023-10-14] MEDS: lisinopriL 5 MG TAB PO SCH (10:19)
[2023-10-14] MEDS: SPIRONOLACTONE 25 MG TAB PO SCH (10:19)
[2023-10-14] MEDS: ASPIRIN 81 MG PO SCH (10:19)
--- NOTE | 2023-10-14 10:40 | P.CRDCN ---
History of Present Illness Consult date: 10/14/23 History of present illness: This is a 73-year-old male patient of Dr. Alec Alvarez with past medical history of ischemic cardiomyopathy with severe LV systolic dysfunction, apical thrombus, chronic systolic heart failure, hypertension, dyslipidemia, single kidney. Patient has LifeVest in place from previous hospitalization in August of this year. We have been asked to evaluate patient for ischemic cardiomyopathy. Patient was at Dr. Alec Alvarez's office yesterday for a follow-up appointment and had previously had blood work done on October 07 that revealed sodium 132, potassium 6.4, BUN 87 and creatinine 2. Because of the abnormal kidney function and hyperkalemia, patient was sent over to [facility] for further evaluation. Patient denies having any chest pain, no shortness of breath, no weakness, no lightheadedness or dizziness. Patient states he has had loose stools since he left the hospital in August but not true diarrhea. He denies having any chest pain with exertion. EKG: Sinus bradycardia 54 bpm, no acute ST-T wave changes. Chest x-ray: No acute process Laboratory studies: Hemoglobin 11.5. Sodium 134, potassium 5.4, BUN 71 creatinine 1.8. Home cardiac medications: Eliquis 5 mg twice daily, aspirin 81 mg daily, atorvas tatin 80 mg at bedtime, Farxiga 10 mg daily, Lasix 40 mg twice daily, Imdur 30 mg daily, lisinopril 20 mg daily, Toprol-XL 25 mg daily, spironolactone 25 mg daily. Cardiac catheterization performed on 08/29/2023 in the setting of a acute non-ST elevated TN revealed severe two-vessel coronary artery disease. Patient was evaluated by cardiothoracic surgery and plan was for medical management. Echocardiogram performed 08/28/2023 revealed severe LV dysfunction with EF of 25 to 30%, LV thrombus fairly large. Lexiscan Cardiolite stress test performed in the office on 09/17/2023 reveals inconclusive EKG part of the stress test due to baseline EKG abnormalities. Abnormal nuclear scan showing ischemic cardiomyopathy with severe LV dysfunction without any ischemia. Review Of Systems: At the time of my exam: CONSTITUTIONAL: Denies fever or chills. HEENT: Denies blurred vision, vision changes, or eye pain. Denies hemoptysis CARDIOVASCULAR: Denies chest pain. Denies orthopnea. Denies PND. Denies p alpitations RESPIRATORY: Denies shortness of breath. GASTROINTESTINAL: Denies abdominal pain. Denies nausea or vomiting. HEMATOLOGIC: Denies bleeding disorders. GENITOURINARY: Denies any blood in urine. SKIN: Denies puritis. Denies rash. Physical examination: Gen: This is a 73-year-old male in no acute distress. VS: reviewed, blood pressure 116/57 previously down to 89/53, heart rate is in the 50s, pulse ox 100% on room air. HEENT: Head is atraumatic, normocephalic. Pupils equal, round. Sclerae is anicteric. NECK: Supple. No JVD. LUNGS: Clear to auscultation. No wheezes or rhonchi. No intercostal retractions. HEART: Regular rate and rhythm. No murmur. ABDOMEN: Soft No tenderness. EXTREMITIES: No pedal edema. No calf tenderness. NEUROLOGICAL: Patient is awake, alert and oriented x3. Assessment: Acute kidney injury Possible lab error versus hyperkalemia History of ischemic cardiomyopathy with known EF of 25 to 30% on LifeVest Apical thrombus on Eliquis Chronic systolic heart failure Hypertension Dyslipidemia Single kidney Plan: Resume patient's home cardiac medications with the following changes: Hold Farxiga, hold Lasix Discontinue Imdur Resume lisinopril at lower dose of 5 mg daily Resume spironolactone at lower dose of 12.5 mg daily Obtain limited 2-D echocardiogram and Doppler study to assess LV function Further recommendations to follow based upon clinical course Thank you kindly for this consultation. Nurse practitioner note has been reviewed, I agree with documented findings and plan of care. Patient was seen and examined. Past Medical History Past Medical History: Asthma, Cancer, Heart Failure, Hyperlipidemia, H ypertension, Myocardial Infarction (TN), Osteoarthritis (OA) Additional Past Medical History / Comment(s): Kidney CA Last Myocardial Infarction Date:: 08/2023 History of Any Multi-Drug Resistant Organisms: None Reported Additional Past Surgical History / Comment(s): Right nephrectomy, cataract removed R eye Past Anesthesia/Blood Transfusion Reactions: No Reported Reaction Past Psychological History: No Psychological Hx Reported Smoking Status: Former smoker Past Alcohol Use History: Rare Past Drug Use History: None Reported - Past Family History Mother Family Medical History: Cancer Additional Family Medical History / Comment(s): Anemia Father Family Medical History: Myocardial Infarction (TN) Medications and Allergies Home Medications Medication Instructions Recorded Confirmed Type Cholecalciferol [Vitamin D3 (25 25 mcg PO DAILY 08/27/23 10/13/23 History Mcg = 1000 Iu)] lisinopriL [Zestril] 20 mg PO DAILY 08/27/23 10/13/23 History Apixaban [Eliquis] 5 mg PO BID 30 Days #60 tab 08/31/23 10/13/23 Rx Aspirin 81 mg PO DAILY 30 Days #30 tab 08/31/23 10/13/23 Rx Atorvastatin [Lipitor] 80 mg PO HS 30 Days #30 tab 08/31/23 10/13/23 Rx Dapagliflozin Propanediol [Farxiga] 10 mg PO DAILY 30 Days #30 tab 08/31/23 10/13/23 Rx Furosemide [Lasix] 40 mg PO BID@0900,1600 30 Days #60 08/31/23 10/13/23 Rx tab Isosorbide Mononitrate ER [Imdur] 30 mg PO DAILY 30 Days #30 tab 08/31/23 Rx Metoprolol Succinate (ER) [Toprol 25 mg PO DAILY 30 Days #30 tab 08/31/23 10/13/23 Rx XL] Spironolactone [Aldactone] 25 mg PO DAILY 30 Days #30 tab 08/31/23 10/13/23 Rx Allergies Allergy/AdvReac Type Severity Reaction Status Date / Time No Known Allergies Allergy Verified 10/13/23 11:23 Physical Exam Vitals: Vital Signs Temp Pulse Pulse Resp BP BP Pulse Ox 10/14/23 06:35 97.5 F L 43 L 17 106/67 100 10/14/23 01:46 98.1 F 53 L 16 89/53 98 10/13/23 20:45 98 F 50 L 16 114/62 100 10/13/23 20:30 50 L 10/13/23 19:45 47 L 17 98/60 100 10/13/23 18:45 97.6 F 50 L 24 91/57 100 10/13/23 17:06 97.6 F 49 L 18 104/64 100 10/13/23 13:39 98.3 F 50 L 20 95/59 100 10/13/23 12:02 97.9 F 51 L 17 99/68 99 10/13/23 10:12 98.1 F 57 L 110/68 98 10/13/23 09:39 97.3 F L 61 16 99/63 100 Intake and Output 10/13/23 10/14/23 10/14/23 22:59 06:59 14:59 Intake Total 120 Balance 120 Intake: Oral 120 Other: # Voids 3 Weight 80.286 kg Results 10/14/23 04:48 10/14/23 04:48 Cardiac Enzymes 10/13/23 Range/Units 10:24 AST 25 (17-59) U/L CBC 10/13/23 10/14/23 Range/Units 10:24 04:48 WBC 4.2 5.24 (3.8-10.6) k/uL RBC 4.22 L 3.87 L (4.30-5.90) m/uL Hgb 12.5 L 11.5 L (13.0-17.5) gm/dL Hct 37.1 L 35.2 L (39.0-53.0) % Plt Count 130 L 115 L (150-450) k/uL Comprehensive Metabolic Panel 10/13/23 10/14/23 Range/Units 10:24 04:48 Sodium 135 L 134 L (137-145) mmol/L Potassium 4.8 5.4 (3.5-5.1) mmol/L Chloride 107 107 (98-107) mmol/L Carbon Dioxide 21 L 17.2 L (22-30) mmol/L BUN 76 H 71.6 H (9-20) mg/dL Creatinine 1.76 H 1.8 H (0.66-1.25) mg/dL Glucose 93 89 (74-99) mg/dL Calcium 10.1 9.4 (8.4-10.2) mg/dL AST 25 (17-59) U/L ALT 22 (4-49) U/L Alkaline Phosphatase 46 (38-126) U/L Total Protein 6.5 (6.3-8.2) g/dL Albumin 4.1 (3.5-5.0) g/dL Current Medications Generic Name Dose Route Start Last Admin Trade Name Freq PRN Reason Stop Dose Admin Apixaban 5 mg 10/13/23 21:00 10/14/23 09:16 Apixaban 5 Mg Tab PO 5 mg BID SVEEN Administration Protocol Atorvastatin Calcium 80 mg 10/13/23 21:00 10/13/23 20:33 Atorvastatin 80 Mg Tab PO 80 mg HS SEVEN Administration Cholecalciferol 25 mcg 10/14/23 09:00 10/14/23 09:16 Cholecalciferol 25 Mcg (1000 Iu) Tablet PO 25 mcg DAILY SEVEN Administration Isosorbide Mononitrate 30 mg 10/14/23 09:00 10/14/23 09:14 Isosorbide Mononitrate Er 30 Mg Tab.Er.24h PO Not Given DAILY SEVEN Metoprolol Succinate 25 mg 10/14/23 09:00 10/14/23 09:12 Metoprolol Succinate (Er) 25 Mg Tab.Er.24h PO Not Given DAILY SEVEN Naloxone HCl 0.2 mg 10/13/23 11:34 Naloxone 0.4 Mg/Ml 1 Ml Vial IV Q2M PRN Opioid Reversal Intake and Output 10/13/23 10/14/23 10/14/23 22:59 06:59 14:59 Intake Total 120 Balance 120 Intake: Oral 120 Other: # Voids 3 Weight 80.286 kg 10/14/23 04:48 10/14/23 04:48
--- NOTE | 2023-10-14 11:55 | US ---
EXAMINATION TYPE: US kidneys/renal and bladder DATE OF EXAM: 10/14/2023 COMPARISON: CT CLINICAL INDICATION: Male, 73 years old with history of assess for obstruction; Abnormal labs, right kidney surgically absent 10+ years EXAM MEASUREMENTS: Right Kidney: Surgically absent Left Kidney: 12.7 X 5.9 X 5.4 cm Right Kidney: Surgically absent Left Kidney: Appeared wnl Bladder: wnl Bilateral Jets seen: No There is no evidence for hydronephrosis at this point in time. No nephrolithiasis is seen. No yamile s are identified. The urinary bladder is anechoic. IMPRESSION: Surgical absence of the right kidney. Otherwise unremarkable study.
--- NOTE | 2023-10-14 12:59 | CA ---
Transthoracic Echo Report Name: Paul Villalobos Age: 73 Gender: M : 1950 Exam Date: 10/14/2023 10:19 Exam Location: [place] [facility] Ht (in): 68 Wt (lb): 177 Ordering Physician: Jyothi More Attending/Referring Phys: [id number], [employer] Project Manager Ariane Chavez RDCS Procedure CPT: Indications: LVF Cardiac Hx: Technical Quality: Fair Contrast 1: Definity Total Dose (mL): 2 Contrast 2: Total Dose (mL): MEASUREMENTS (Male / Female) Normal Values 2D ECHO LV Diastolic Volume MOD BP 195.6 cm??? 67 - 155 / 56 - 104 cm??? LV Systolic Volume MOD BP 99.3 cm??? 22 - 58 / 19 - 49 cm??? LV Ejection Fraction MOD BP 49.2 % >= 55 % LV Cardiac Index MOD BP 2628.5 cm???/min???m??? LV Diastolic Volume MOD 4C 213.0 cm??? LV Systolic Volume MOD 4C 110.2 cm??? LV Ejection Fraction MOD 4C 48.3 % LV Cardiac Index MOD 4C 2807.4 cm???/min???m??? LV Diastolic Length 4C 10.8 cm LV Systolic Length 4C 9.5 cm LV Diastolic Volume MOD 2C 153.3 cm??? LV Systolic Volume MOD 2C 80.2 cm??? LV Ejection Fraction MOD 2C 47.7 % LV Cardiac Index MOD 2C 1996.0 cm???/min???m??? LV Diastolic Length 2C 9.2 cm LV Systolic Length 2C 8.5 cm DOPPLER TR Peak Velocity 249.9 cm/s TR Peak Gradient 25.0 mmHg Right Atrial Pressure 10.0 mmHg Pulmonary Artery Systolic Pressu 35.0 mmHg Right Ventricular Systolic Press 35.0 mmHg FINDINGS Left Ventricle Left ventricular ejection fraction is estimated at 45-50 %. Moderately increased left ventricular diastolic volume. Severely increased left ventricular systolic volume. Mildly decreased left ventricular ejection fraction. Right Ventricle Moderate right ventricular dilatation with normal function. Borderline elevated right ventricular systolic pressure 35mmHg. Right Atrium Right atrial dilatation. Left Atrium Left atrial dilatation. Mitral Valve Structurally normal mitral valve. No evidence for mitral valve prolapse. No mitral stenosis. Trace mitral regurgitation. Aortic Valve Trileaflet aortic valve. No aortic valve stenosis or regurgitation. Tricuspid Valve Structurally normal tricuspid valve. No tricuspid stenosis. Mild tricuspid regurgitation. Pulmonic Valve Pulmonic valve not well visualized. No pulmonic stenosis. No pulmonic regurgitation. Pericardium No pericardial effusion. Prominent epicardial fat. Aorta Aortic root and proximal ascending aorta not assessed CONCLUSIONS Mild LV dilation with reduced LV systolic function ejection fraction 45% Mild RV enlargement Previewed by: Dr. Vitaliy Mitchell MD (Electronically Signed) Final Date: 14 October 2023 12:58
[2023-10-14 13:21] VITALS: BP 107/64; PULSE 69; RESP 16; TEMP 97.9
[2023-10-14 14:22] VITALS: BMI 26.9
[2023-10-15] MEDS ORDERED: lisinopriL 5 MG TAB PO SCH (09:00)
== END 2023-10-14 17:09 | disposition home or self-care (01) ==
LOC: EC 09:38 → 6NMEDSUR 11:35 → 5NMEDONC 19:57
PROVIDERS: ADMIT Internal Medicine; ATTEND Internal Medicine
DX: N17.9 Acute kidney failure, unspecified (principal); I13.0 Hypertensive heart and chronic kidney disease with heart failure and stage 1 through stage 4 chronic kidney disease, or unspecified chronic kidney disease; N18.30 Chronic kidney disease, stage 3 unspecified; I50.22 Chronic systolic (congestive) heart failure; I25.5 Ischemic cardiomyopathy; I51.3 Intracardiac thrombosis, not elsewhere classified; I25.10 Atherosclerotic heart disease of native coronary artery without angina pectoris; R00.1 Bradycardia, unspecified; E78.5 Hyperlipidemia, unspecified; M19.90 Unspecified osteoarthritis, unspecified site; J45.909 Unspecified asthma, uncomplicated; I25.2 Old myocardial infarction; Z79.01 Long term (current) use of anticoagulants; Z79.84 Long term (current) use of oral hypoglycemic drugs; Z79.82 Long term (current) use of aspirin; Z79.899 Other long term (current) drug therapy; Z85.528 Personal history of other malignant neoplasm of kidney; Z90.5 Acquired absence of kidney; Z87.891 Personal history of nicotine dependence; Z95.811 Presence of heart assist device
CPT/HCPCS: 99285; 36415; 93005; 80053; 80048; 83735 ×2; 84100; 85025 ×2; 71046; 76770; G0378 ×3; C8924; Q9957; 93308

== ENCOUNTER → 2023-10-19 | Outpatient (CLI) | payer MEDICARE, OTHER ==
[2023-10-19 14:49] LABS: BUN/Creat Ratio 25.86 Ratio (12.00-20.00); Blood Urea Nitrogen 36.2 mg/dL (9.0-27.0); Calcium 10.2 mg/dL (8.7-10.3); Chloride 110 mmol/L (96-109); Glucose 101 mg/dL (70-110); Potassium 5.5 mmol/L (3.5-5.5); Sodium 138 mmol/L (135-145)
== END | disposition home or self-care (01) ==
LOC: LABWHC1 10:06
PROVIDERS: ATTEND Registered Nurse
DX: I50.9 Heart failure, unspecified (principal); N17.9 Acute kidney failure, unspecified; Q60.0 Renal agenesis, unilateral
CPT/HCPCS: 36415; 80048

== ENCOUNTER 2023-12-19 06:00 | Inpatient (IN) | payer MEDICARE, OTHER ==
[~2023-12-19 06:00] MED LIST: ETOMIDATE 2 MG/ML 10 ML VIAL ONE; FUROSEMIDE 10 MG/ML 4 ML VIAL ONE; HEPARIN SOD,PORK IN 0.45% NACL 250 ML IV ONE; HEPARIN SODIUM 1,000 UN/ML (10ML VL) ONE; MAGNESIUM SULFATE-D5W PMX 200 ML IVPB ONE; ONDANSETRON 4 MG/2 ML VIAL ONE; PIPERACILLIN-TAZOBACTAM 3.375 GM VIAL ONE; PROPOFOL 10 MG/ML 100 ML VIAL IV ONE; PROPOFOL 10 MG/ML 20 ML VIAL IV ONE; ROCURONIUM 10 MG/ML (5 ML VIAL) IV ONE; SODIUM CHLORIDE 0.9% 1,000 ML BAG ONE; fentaNYL (PF) 50 MCG/ML 2 ML AMP ONE; propofoL 100 ML IV ONE
[2023-12-19] MEDS ORDERED: POTASSIUM CHLORIDE 200 ML IVPB ONE (06:05)
[2023-12-19] MEDS ORDERED: propofoL 100 ML IV ONE ×3 (12:52→23:40)
[2023-12-19] MEDS ORDERED: FAMOTIDINE 20 MG/2 ML VIAL ONE ×2 (13:01→21:38)
[2023-12-19] MEDS ORDERED: LIDOCAINE 1% INJ 10MG/ML (20 ML MDV) ONE (17:24)
[2023-12-19] MEDS ORDERED: HEPARIN SODIUM,PORCINE 10,000 UNIT/ML 1 ML VIAL ONE (17:24)
[2023-12-19] MEDS ORDERED: SODIUM CHLORIDE 0.9% 500 ML BAG ONE (17:24)
[2023-12-19] MEDS ORDERED: SODIUM CHLORIDE 0.9% 1,000 ML BAG ONE ×2 (17:24→23:59)
[2023-12-19] MEDS ORDERED: VERAPAMIL 2.5 MG/ML 4 ML VIAL ONE (17:24)
[2023-12-19] MEDS: IOPAMIDOL-370 100ML BTL INJ ONE (17:37)
[2023-12-19] MEDS ORDERED: PIPERACILLIN-TAZOBACTAM 3.375 GM VIAL ONE ×2 (21:38→23:59)
[2023-12-19] MEDS ORDERED: SODIUM CHLORIDE 0.9% 100 ML BAG ONE ×2 (23:59)
[2023-12-20] MEDS ORDERED: HEPARIN SOD,PORK IN 0.45% NACL 250 ML IV ONE (03:06)
[2023-12-20] MEDS ORDERED: propofoL 100 ML IV ONE ×4 (05:40→23:04)
[2023-12-20] MEDS ORDERED: PIPERACILLIN-TAZOBACTAM 3.375 GM VIAL ONE (06:05)
[2023-12-20] MEDS ORDERED: IPRATROPIUM-ALBUTEROL 3 ML NEB ONE (07:55)
[2023-12-20] MEDS ORDERED: METOPROLOL TARTRATE 25 MG TAB ONE (08:15)
[2023-12-20] MEDS ORDERED: ASPIRIN 81 MG ONE (08:15)
[2023-12-20] MEDS ORDERED: SPIRONOLACTONE 25 MG TAB ONE (08:15)
[2023-12-20] MEDS ORDERED: FAMOTIDINE 20 MG/2 ML VIAL ONE ×2 (08:16→20:31)
[2023-12-20] MEDS ORDERED: DEXMEDETOMIDINE/0.9% NACL(PMX) 400 MCG/100 ML IV ONE (13:40)
[2023-12-20] MEDS ORDERED: POTASSIUM CHLORIDE 100 ML ONE ×2 (17:34→18:43)
[2023-12-20] MEDS ORDERED: SODIUM CHLORIDE 0.9% 100 ML BAG ONE (23:59)
[2023-12-20] MEDS ORDERED: SODIUM CHLORIDE 0.9% 1,000 ML BAG ONE (23:59)
[2023-12-21] MEDS ORDERED: HEPARIN SOD,PORK IN 0.45% NACL 250 ML IV ONE ×2 (02:52→21:35)
[2023-12-21] MEDS ORDERED: propofoL 100 ML IV ONE ×2 (04:26→08:41)
[2023-12-21] MEDS ORDERED: ASPIRIN 81 MG ONE (08:04)
[2023-12-21] MEDS ORDERED: SPIRONOLACTONE 25 MG TAB ONE (08:04)
[2023-12-21] MEDS ORDERED: FAMOTIDINE 20 MG/2 ML VIAL ONE ×2 (08:05→20:13)
[2023-12-21] MEDS ORDERED: POTASSIUM BICARBONATE/CIT AC 20 MEQ TABLET.EFF ONE (08:06)
[2023-12-21] MEDS ORDERED: NITROGLYCERIN-D5W PMX 250 ML IV ONE (09:04)
[2023-12-21] MEDS ORDERED: HEPARIN SODIUM 1,000 UN/ML (10ML VL) ONE (15:21)
[2023-12-21] MEDS ORDERED: SODIUM CHLORIDE 0.9% 1,000 ML BAG ONE (23:59)
[2023-12-22] MEDS ORDERED: POTASSIUM CHLORIDE 100 ML ONE (07:17)
[2023-12-22] MEDS ORDERED: ASPIRIN 81 MG ONE (09:28)
[2023-12-22] MEDS ORDERED: SPIRONOLACTONE 25 MG TAB ONE (09:28)
[2023-12-22] MEDS ORDERED: POTASSIUM CHLORIDE ER 20 MEQ TAB.ER PO ONE (09:28)
[2023-12-22] MEDS ORDERED: FAMOTIDINE 20 MG/2 ML VIAL ONE ×2 (09:29→21:14)
[2023-12-23] MEDS ORDERED: ASPIRIN 81 MG ONE (09:42)
[2023-12-23] MEDS ORDERED: SPIRONOLACTONE 25 MG TAB ONE (09:42)
[2023-12-23] MEDS ORDERED: METOPROLOL SUCCINATE (ER) 25 MG TAB.ER.24H PO ONE (09:42)
[2023-12-23] MEDS ORDERED: FAMOTIDINE 20 MG/2 ML VIAL ONE ×2 (09:42→21:45)
[2023-12-23] MEDS ORDERED: POTASSIUM CHLORIDE ER 20 MEQ TAB.ER PO ONE (12:55)
[2023-12-24] MEDS: IOPAMIDOL-370 100ML BTL INJ ONE (09:02)
[2023-12-24] MEDS ORDERED: FAMOTIDINE 20 MG/2 ML VIAL ONE ×2 (09:21→22:43)
[2023-12-24] MEDS ORDERED: ASPIRIN 81 MG ONE (09:21)
[2023-12-24] MEDS ORDERED: METOPROLOL TARTRATE 25 MG TAB ONE (09:21)
[2023-12-24] MEDS ORDERED: SPIRONOLACTONE 25 MG TAB ONE (09:22)
[2023-12-24] MEDS ORDERED: fentaNYL (PF) 50 MCG/ML 2 ML AMP ONE (19:31)
[2023-12-24] MEDS ORDERED: SODIUM CHLORIDE 0.9% 50 ML BAG IV ONE (19:31)
[2023-12-24] MEDS ORDERED: ceFAZolin 1,000 MG VIAL ONE (19:31)
[2023-12-24] MEDS ORDERED: MIDAZOLAM 2 MG/2 ML VIAL ONE (19:31)
[2023-12-24] MEDS ORDERED: ROPIVACAINE 5MG/ML 20ML VIAL ONE (19:31)
[2023-12-24] MEDS ORDERED: LIDOCAINE 1% INJ 10MG/ML (20 ML MDV) ONE (20:06)
[2023-12-24] MEDS ORDERED: ACETAMINOPHEN TAB 325 MG TAB ONE (22:56)
[2023-12-24] MEDS ORDERED: SACUBITRIL/VALSARTAN 24 MG-26 MG TABLET PO ONE (23:30)
[2023-12-24] MEDS ORDERED: SODIUM CHLORIDE 0.9% 250 ML BAG ONE (23:30)
[2023-12-24] MEDS ORDERED: VANCOMYCIN 1,000 MG VIAL ONE (23:30)
[2023-12-25] MEDS ORDERED: SPIRONOLACTONE 25 MG TAB ONE (08:53)
[2023-12-25] MEDS ORDERED: ASPIRIN 81 MG ONE (08:53)
[2023-12-25] MEDS ORDERED: carvediloL 6.25 MG TAB ONE ×2 (08:54→17:15)
[2023-12-25] MEDS ORDERED: FAMOTIDINE 20 MG TAB ONE ×2 (08:56→21:29)
[2023-12-25] MEDS ORDERED: ACETAMINOPHEN TAB 325 MG TAB ONE ×2 (08:56→21:29)
[2023-12-25] MEDS ORDERED: ATORVASTATIN 80 MG TAB ONE (08:56)
[2023-12-25] MEDS ORDERED: SACUBITRIL/VALSARTAN 24 MG-26 MG TABLET PO ONE (21:30)
[2023-12-25] MEDS ORDERED: ARTIFICIAL TEARS OINTMENT 3.5 GM TUBE ONE (23:59)
[2023-12-25] MEDS ORDERED: SODIUM CHLORIDE 0.9% 50 ML BAG ONE (23:59)
[2023-12-25] MEDS ORDERED: ceFAZolin 1,000 MG VIAL ONE (23:59)
[2023-12-25] MEDS ORDERED: DAPAGLIFLOZIN PROPANEDIOL 5 MG TABLET ONE (23:59)
[2023-12-26] MEDS ORDERED: SPIRONOLACTONE 25 MG TAB ONE (08:06)
[2023-12-26] MEDS ORDERED: SACUBITRIL/VALSARTAN 24 MG-26 MG TABLET PO ONE (08:07)
[2023-12-26] MEDS ORDERED: FAMOTIDINE 20 MG TAB ONE (08:07)
[2023-12-26] MEDS ORDERED: ASPIRIN 81 MG ONE (08:07)
[2023-12-26] MEDS ORDERED: ATORVASTATIN 80 MG TAB ONE (08:07)
[2023-12-26] MEDS ORDERED: DAPAGLIFLOZIN PROPANEDIOL 5 MG TABLET ONE (08:07)
[2023-12-26] MEDS ORDERED: carvediloL 6.25 MG TAB ONE (08:08)
--- NOTE | 2024-01-14 10:10 | XR ---
Patient: Paul Villalobos Ordering Physician: Unknown, Unknown ID: [id number] Phone, Pager: Phone: N/A Pager: N/A : 1950 Age/Gender: 73Y, M Primary Location: N/A Procedure: cxr 1v Study Date: 12/24/2023 5:23:36 AM EXAMINATION TYPE: XR chest 1V DATE OF EXAM: 12/25/2023 COMPARISON: 12/22/2023 HISTORY: 73-year-old male ICU follow-up TECHNIQUE: Single frontal view of the chest is obtained. FINDINGS: Heart mildly enlarged. Old healed fracture deformities left-sided ribs. Adjacent patchy opacity along the periphery of the left mid and lower lung probably pleural parenchymal scarring, unchanged. Right lung and pleural space are clear. IMPRESSION: Probable pleural parenchymal scarring along the periphery of the left mid and lower lung , this opacity is unchanged and there are adjacent chronic healed rib fracture deformities.
--- NOTE | 2024-01-18 10:29 | XR ---
Patient: Paul Villalobos Ordering Physician: Unknown, Unknown ID: [id number] Phone, Pager: Phone: N/A Pager: N/A : 1950 Age/Gender: 73Y, M Primary Location: N/A Procedure: XR CHEST 2VW Study Date: 12/25/2023 6:50:00 AM TYPE: XR chest 1V DATE OF EXAM: 12/25/2023 COMPARISON: 12/24/2023 HISTORY: 73-year-old male lead placement check TECHNIQUE: Single frontal view of the chest is obtained. FINDINGS: Left anterior chest wall AICD generator with right atrial and right ventricular leads. No appreciable pneumothorax. Heart mildly enlarged. No pleural effusion. Patchy posterior basilar opacit y on the lateral view. Chronic left-sided rib fracture deformities now partially obscured by the gene rator device. IMPRESSION: 1. Left anterior chest wall AICD generator with right atrial and right ventricular leads. 2. Mild cardiomegaly. 3. The patient's left-sided rib fracture deformities are now partially obscured. 4. Patchy posterior basilar atelectasis versus infiltrate. Correlate with symptoms.
--- NOTE | 2024-01-19 09:06 | XR ---
EXAMINATION TYPE: XR chest 1V portable DATE OF EXAM: 12/18/2023. Images presented 01/18/2024 for final interpretation, previous dictation dionne ot be located. COMPARISON: 12/25/2023 INDICATION: Cardiac arrest TECHNIQUE: Single frontal view of the chest is obtained. FINDINGS: The heart size is enlarged. The pulmonary vasculature is normal. Lung wood appear clear. No pneumothorax present. Endotracheal tube tip is 4.2 cm above the nereyda. Nasogastric tube transverses the thorax tip in left upper quadrant of the abdomen. IMPRESSION: 1. Cardiomegaly. 2. Lines and catheters discussed above [facility] Cornelius, , 01/19/2024 9:03 AM
--- NOTE | 2024-01-19 09:55 | XR ---
EXAMINATION TYPE: XR chest 1V DATE OF EXAM: 12/21/2023 COMPARISON: 10/13/2023 HISTORY: 73-year-old male intubated, ICU follow-up TECHNIQUE: Single frontal view of the chest is obtained. FINDINGS: Patient is rotated toward the left altering the normal cardiac and mediastinal contours. E T and NG tubes are satisfactory. Heart overall normal size. There is some focal density at the periph socrates of the left base. Old healed left-sided rib fracture 40s. IMPRESSION: Portable exam further limited by patient rotation. There is some patchy infiltrate and/o r small effusion at the left base.
--- NOTE | 2024-01-19 10:35 | XR ---
Paul Villalobos ID: [id number] : 1950 EXAMINATION TYPE: XR chest 1V DATE OF EXAM: 12/22/2023 COMPARISON: 12/21/2023 HISTORY: 73 year-old male shortness of breath, ICU follow-up TECHNIQUE: Single frontal view of the chest is obtained. FINDINGS: Heart upper limits of normal in size. Old healed left-sided rib fracture deformities. Karoline ent is obliqued and slightly rotated toward the left. Interval extubation. There is some patchy densi ty along the periphery of the left mid and lower lung which may be slightly increased. IMPRESSION: Old healed left-sided rib fracture deformities. Mild patchy density along the periphery of the left mid and lower lung appears slightly increased.
--- NOTE | 2024-01-19 12:09 | CA ---
Transthoracic Echo Report Name: Paul Villalobos Age: 73 Gender: M : 1950 Exam Date: 12/19/2023 12:50 Exam Location: [place] [facility] Ht (in): 70 Wt (lb): 180 Ordering Physician: Attending/Referring Phys: Pantry Goods MakerAriane Mccord RDCS Procedure CPT: Indications: Cardiac Hx: Technical Quality: Technically difficult study Contrast 1: Definity Total Dose (mL): 2 Contrast 2: Total Dose (mL): MEASUREMENTS (Male / Female) Normal Values 2D ECHO LV Diastolic Diameter PLAX 5.8 cm 4.2 - 5.9 / 3.9 - 5.3 cm LV Systolic Diameter PLAX 4.4 cm IVS Diastolic Thickness 1.0 cm 0.6 - 1.0 / 0.6 - 0.9 cm LVPW Diastolic Thickness 1.3 cm 0.6 - 1.0 / 0.6 - 0.9 cm LV Relative Wall Thickness 0.4 LVOT Diameter 2.2 cm LV Diastolic Volume MOD BP 177.6 cm??? 67 - 155 / 56 - 104 cm??? LV Systolic Volume MOD BP 98.2 cm??? 22 - 58 / 19 - 49 cm??? LV Ejection Fraction MOD BP 44.7 % >= 55 % LV Cardiac Index MOD BP 2399.1 cm???/min???m??? LV Diastolic Volume MOD 4C 177.3 cm??? LV Systolic Volume MOD 4C 101.7 cm??? LV Ejection Fraction MOD 4C 42.7 % LV Cardiac Index MOD 4C 2285.9 cm???/min???m??? LV Diastolic Length 4C 9.4 cm LV Systolic Length 4C 7.7 cm LV Diastolic Volume MOD 2C 172.5 cm??? LV Systolic Volume MOD 2C 85.5 cm??? LV Ejection Fraction MOD 2C 50.5 % LV Cardiac Index MOD 2C 2630.0 cm???/min???m??? LV Diastolic Length 2C 9.7 cm LV Systolic Length 2C 8.6 cm LA Volume 66.8 cm??? 18 - 58 / 22 - 52 cm??? LA Volume Index 33.1 cm???/m??? 16 - 28 cm???/m??? Ascending Aorta Diameter 3.7 cm DOPPLER AV Peak Velocity 104.0 cm/s AV Peak Gradient 4.3 mmHg AV Mean Velocity 71.9 cm/s AV Mean Gradient 2.3 mmHg AV Velocity Time Integral 18.9 cm LVOT Peak Velocity 108.6 cm/s LVOT Peak Gradient 4.7 mmHg LVOT Velocity Time Integral 17.3 cm LVOT Stroke Volume 66.6 cm??? LVOT Stroke Volume Index 33.4 ml/m??? LVOT Cardiac Index 2011.5 cm???/min???m??? AV Area Cont Eq vti 3.5 cm??? AV Area Cont Eq pk 4.0 cm??? MV Area PHT 4.2 cm??? Mitral E Point Velocity 41.9 cm/s Mitral A Point Velocity 65.4 cm/s Mitral E to A Ratio 0.6 MV Deceleration Time 182.5 ms TR Peak Velocity 223.8 cm/s TR Peak Gradient 20.0 mmHg Right Atrial Pressure 20.0 mmHg Pulmonary Artery Systolic Pressu 40.0 mmHg Right Ventricular Systolic Press 40.0 mmHg PV Peak Velocity 99.7 cm/s PV Peak Gradient 4.0 mmHg FINDINGS Left Ventricle Left ventricular ejection fraction is estimated at 30-35 %. Mildly increased left ventricular diastolic volume. Severely increased left ventricular systolic volume. Severely decreased left ventricular ejection fraction with regional varibility. Right Ventricle Normal right ventricular size and function. Mildly elevated right ventricular systolic pressure. Right Atrium Normal right atrial size. Left Atrium Mildly increased left atrial volume. Mildly increased left atrial area. Mitral Valve Structurally normal mitral valve. No evidence for mitral valve prolapse. No mitral stenosis. Trace mitral regurgitation. Aortic Valve Trileaflet aortic valve. No aortic stenosis. Trace aortic regurgitation. Tricuspid Valve Structurally normal tricuspid valve. No tricuspid stenosis. Mild tricuspid regurgitation. Pulmonic Valve Structurally normal pulmonic valve. No pulmonic stenosis. No pulmonic regurgitation. Pericardium No pericardial effusion. Aorta Normal size aortic root and proximal ascending aorta. CONCLUSIONS Left ventricular ejection fraction 30-35% RVSP 40 Mildly dilated left atrium Trace mitral regurgitation Mild tricuspid regurgitation No pericardial effusion Previewed by: Dr. Claudio Leggett DO (Electronically Signed) Final Date: 19 December 2023 18:01
--- NOTE | 2024-01-19 15:46 | XR ---
Patient Paul Villalobos ID [id number] Order # EXAMINATION TYPE: XR chest 1V DATE OF EXAM: 12/19/2023 COMPARISON: No comparison available on downtime PACS. INDICATION: Intubation difficulty breathing TECHNIQUE: Single frontal view of the chest is obtained. FINDINGS: The heart size is large. The pulmonary vasculature is normal. The lungs are clear. Endotracheal tube tip is 3.3 cm above nereyda. Nasogastric tube tip is within the proximal left upper quadrant of the abdomen. This could be advanced approximately 10 cm. IMPRESSION: 1. Very minimally. 2. Endotracheal tube tip above the nereyda. 3. Nasogastric tube within the proximal left upper quadrant, this can be advanced approximately 10 cm for better positioning.
--- NOTE | 2024-01-20 11:56 | CDI ---
Documentation Clarification Form Date: 01/20/2024 11:37:42 AM From: Cynthia Lira Admit Date: 12/19/2023 06:00:00 AM Patient Name: Paul Villalobos Visit Number: [id number] Discharge Date: 12/26/2023 03:24:00 PM ATTENTION: The Clinical Documentation Specialists (CDI) and [facility] Coding Staff appreciate your assistance in clarifying documentation. Please respond to the clarification below the line at the bottom and electronically sign. The CDI & [facility] Coding staff will review the response and follow-up if needed. Please note: Queries are made part of the Legal Health Record. If you have any questions, please contact the author of this message via ITS. Doctor/Provider: Claudio Leggett Conflicting documentation has been found in the medical record. As attending physician, please provide clarification. Per cardiac consult Type II GA Per another cardiac consult NSTEMI History/Risk Factors: cardiac arrest, ventricular fibrillation, ischemic cardiomyopathy, chronic CHF Clinical Indicators: Troponins 2.31, 2.92, 4.03 Treatment: heparin, AICD placement, LT heart cath Please clarify which diagnosis is most appropriate: [ X ] NSTEMI, Type II [ ] Type II GA [ ] Other (please specify) [ ] Unable to determine MTDD
--- NOTE | 2024-01-21 10:06 | CT ---
EXAM: CT Head Without Intravenous Contrast CLINICAL HISTORY: Cardiac arrest, unknown trauma, possible choking TECHNIQUE: Axial computed tomography images of the head/brain without intravenous contrast. CTDI is 45.2 mGy and DLP is 1113 mGy-cm. This CT exam was performed using one or more of the following dose reduction techniques: automated exposure control, adjustment of the mA and/or kV according to patient size, and/or use of iterative reconstruction technique. COMPARISON: No relevant prior studies available. FINDINGS: Brain:Age-related parenchymal volume loss. Mild chronic small vessel ischemic change. Galvan-white matter differentiation maintained. No hemorrhage, mass effect, parenchymal edema, or midline shift. Ventricles:Unremarkable. No hydrocephalus. Bones/joints:Unremarkable. No acute fracture. Soft tissues:Unremarkable. Vasculature: Intracranial atherosclerosis. Sinuses: Trace mucosal thickening in the sphenoid sinus. Mucous retention cyst left maxillary sinus. Mastoid air cells:Unremarkable as visualized. No mastoid effusion. Tubes, lines and devices:Nasogastric tube via the right naris. Partially imaged endotracheal tube. IMPRESSION: 1. No acute intracranial process. 2. If there is concern for anoxic injury, recommend continued CT follow-up. EXAM: CT Cervical Spine Without Intravenous Contrast CLINICAL HISTORY: Cardiac arrest, unknown trauma, possible choking TECHNIQUE: Axial computed tomography images of the cervical spine without intravenous contrast. CTDI is 14.4 mGy and DLP is 444.7 mGy-cm. This CT exam was performed using one or more of the following dose reduction techniques: automated exposure control, adjustment of the mA and/or kV according to patient size, and/or use of iterative reconstruction technique. COMPARISON: No relevant prior studies available. FINDINGS: Vertebrae:Unremarkable. No acute fracture. No traumatic subluxation. Discs/spinal canal/neural foramina: Lower cervical disc degeneration. Bilateral facet degeneration. No significant central canal stenosis. Mild multilevel foraminal narrowing. Soft tissues:Unremarkable. Lung apices:Clear lung apices. Tubes, lines and devices: Endotracheal tube and enteric tube in place. IMPRESSION: No acute findings in the cervical spine. Radiologist: Phoebe Mcdonald M.D. Electronically Signed: 12/18/23 23:44 Study ready at 23:37 and initial results transmitted at 23:44 [facility]
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
--- NOTE | 2024-01-28 14:46 | PN ---
PROGRESS NOTE DATE OF SERVICE: 12/24/2023 SUBJECTIVE: Mr. Villalobos underwent a dual-chamber ICD implantation for hospital cardiac arrest with VF. He has known ischemic cardiomyopathy, non-revascularizable, on maximally tolerated medical treatment. This is the ACC appropriate use criteria for ICD. Indication #9A on page 12 of the document. Briefly, the patient was brought to the EP lab in a fasting state. Written informed consent was obtained prior to the procedure. IV antibiotics were administered including IV vancomycin and Kefzol. Under sterile precautions, the left pectoral pocket was made, 2 leads were positioned where the axillary vein access in the right atrial lead and the ICD lead. Right atrial lead was screwed in the right atrial appendage with P waves of 4 mV, pacing threshold 0.5 V at 0.4 milliseconds and pacing impedance of 475 ohms 10 V test was negative. RV lead position in the RV apex. R-waves 30 mV, pacing threshold 0.5 V at 0.4 milliseconds and pacing impedance of 418 ohms. Leads were secured and Medtronic ICD was implanted, leads were the Medtronic leads. This was a [place] XT DR ICD MRI SureScan, this was implanted in subfascial pocket. Antibiotic pouch was placed and the wound was closed in 3 layers and dressed per protocol. The patient already received IV vancomycin and Kefzol. DFT testing was deferred. The patient has severe sinus bradycardia at rest and therefore a dual-chamber ICD was implanted. This programming was DDDR 60 to 130 ppm. VT zone 176 beats per minute, VF zone 207 beats per minute, appropriate antitachycardia pacing cardioversion defibrillation programmed monitor zone of 150 beats per minute. Sensitivity 0.5 mV. The patient tolerated the procedure well without any acute complications. PLAN: Maximize beta blockers, switch to carvedilol 6.25 mg twice daily, and increase to 12.5 mg twice daily. Continue Entresto, spironolactone, aspirin, and consider Plavix in place of aspirin in the future. Continue high dose statins. MMODL / IJN: [id number] /
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
== END 2023-12-26 15:24 | disposition home or self-care (01) | DRG 275 ==
LOC: DISRECOVER 06:00 → 3SCARD 12-26 15:24
PROVIDERS: ADMIT Internal Medicine; ATTEND Internal Medicine
PROC: 02H63KZ Insertion of Defibrillator Lead into Right Atrium, Percutaneous Approach (ICD-10-PCS; 2023-12-19)
PROC: 4A023N7 Measurement of Cardiac Sampling and Pressure, Left Heart, Percutaneous Approach (ICD-10-PCS; 2023-12-19)
PROC: 02HK3KZ Insertion of Defibrillator Lead into Right Ventricle, Percutaneous Approach (ICD-10-PCS; 2023-12-19)
PROC: B2111ZZ Fluoroscopy of Multiple Coronary Arteries using Low Osmolar Contrast (ICD-10-PCS; 2023-12-19)
PROC: 5A1945Z Respiratory Ventilation, 24-96 Consecutive Hours (ICD-10-PCS; 2023-12-19)
PROC: 0BH17EZ Insertion of Endotracheal Airway into Trachea, Via Natural or Artificial Opening (ICD-10-PCS; 2023-12-19)
PROC: 0JH608Z Insertion of Defibrillator Generator into Chest Subcutaneous Tissue and Fascia, Open Approach (ICD-10-PCS; principal; 2023-12-19 17:20)
DX: I49.01 Ventricular fibrillation (principal); I21.A1 Myocardial infarction type 2; J96.01 Acute respiratory failure with hypoxia; N17.9 Acute kidney failure, unspecified; R00.1 Bradycardia, unspecified; I46.2 Cardiac arrest due to underlying cardiac condition; I25.10 Atherosclerotic heart disease of native coronary artery without angina pectoris; I25.5 Ischemic cardiomyopathy; I49.3 Ventricular premature depolarization; N18.9 Chronic kidney disease, unspecified; Z90.5 Acquired absence of kidney; Z79.01 Long term (current) use of anticoagulants; Z79.82 Long term (current) use of aspirin; Z79.899 Other long term (current) drug therapy
CPT/HCPCS: 33249; 36600; 70450; 71045; 71046; 71260; 72125; 74177; 87070; 87205; 93005; 93306; 93458; 94002; 94003; 96361; 96374; 96375; 96376; 99285

== ENCOUNTER → 2024-08-02 | Outpatient (CLI) | payer MEDICARE ==
[2024-08-02 15:04] LABS: ALT 21 U/L (10-49); AST 26 U/L (14-35); Blood Urea Nitrogen 39.2 mg/dL (9.0-27.0); Calcium 10.5 mg/dL (8.7-10.3); Chloride 101 mmol/L (96-109); Chol/HDL Ratio 2.72 Ratio; Glucose 122 mg/dL (70-110); LDL Cholesterol,Calculated 41.2 mg/dL (0.0-131.0); Potassium 4.9 mmol/L (3.5-5.5); Sodium 137 mmol/L (135-145)
[2024-08-02 15:57] LABS: HGB 15.2 g/dL (13.0-17.0); MCH 30.6 pg (27.0-32.0); MCHC 32.3 g/dL (32.0-37.0); MCV 94.8 FL (80.0-97.0); Mean Platelet Volume 9.8 FL (9.5-12.2); NRBC Per 100 WBC 0 X 10*3/uL (0.00-0.01); Platelet Count 202 X 10*3/uL (140-440); RBC 4.96 X 10*6/uL (4.40-5.60); WBC 6.88 X 10*3/uL (4.50-10.00)
== END | disposition home or self-care (01) ==
LOC: LABWHC1 11:52
PROVIDERS: ATTEND Internal Medicine Cardiovascular Disease
DX: I50.22 Chronic systolic (congestive) heart failure (principal); E78.2 Mixed hyperlipidemia
CPT/HCPCS: 36415; 80048; 80061; 84443; 84450; 84460; 85027